=== PATIENT | male | born 1925 | race Caucasian/White ===

== ENCOUNTER 2016-04-06 15:29 | Inpatient (IN) | payer BC, OTHER ==
[~2016-04-06] VITALS: Ht 170.2 cm; Wt 88.9 kg
[~2016-04-06 15:29] MED LIST: ALBU1AER9 INH; BENZ100C84 PO; BROM0.07 OPR; DIPH-416 PO; INDO-22 PO; NRN600 PO; PRED1SUS3 OPR; PROP1TAB PO; PROP60TA19 PO
[2016-04-06] MEDS ORDERED: MYS50 PO (15:30)
[2016-04-06] MEDS ORDERED: LISI-461 PO (15:30)
[2016-04-06] MEDS ORDERED: HYDR12.56 PO (15:30)
[2016-04-06] MEDS ORDERED: ALL300 PO ×2 (15:30→18:04)
[2016-04-06] MEDS ORDERED: DILTIAZEM HCL 5 MG/ML 5 ML VIAL IV STA (16:05)
[2016-04-06] MEDS ORDERED: DILTIAZEM BOLUS / DRIP IV STA ×2 (16:05→18:17)
--- NOTE | 2016-04-06 16:10 | EMERGENCY ROOM VISIT NOTE ---
History Report prepared by Deidra: José Johnson Under the Supervision of: Dr. Francisco Ruiz M.D. First contact with patient: 15:45 Chief Complaint: CARDIAC ASSESSMENT Stated Complaint: IRREGULAR HEART RYTHEM - REFERRED BY Nursing Triage Summary: Pt reports sob that began yesterday, chest tightness, feeling tired. "I lost my balance on Fri night and fell into juniper bushes. I didn't go all the way to the ground." EKG done at [facility] shows a.fib RVR. Pt denies hx of a.fib. History of Present Illness The patient is an 89 year old male who presents to the Emergency Room with complaints of an acute irregular heart rhythm that was found at his PCP's office at [facility] earlier today. The patient had an EKG that showed atrial fibrillation with RVR at 108 beats per minute, no acute ischemic changes. He has never been diagnosed with a-fib before. The patient is not on any blood thinners. The patient notes that he started to experience shortness of breath and chest tightness yesterday. He has some abdominal pain today as well. The patient also notes that he had a fall three days ago where he fell into some bushes. The patient did not hit his head or lose consciousness. He attributes the fall to losing his balance on the edge of the walkway. Source of History: patient, transfer records (EKG [facility]) Onset: earlier today Position: other (heart) Quality: other (irregular rhythm) Timing: other (acute) Associated Symptoms: + SOB, + abdominal pain, + chest pain Review of Systems See HPI for pertinent positives & negatives. A total of 10 systems reviewed and were otherwise negative. Past Medical & Surgical Medical Problems: (1) CKD (chronic kidney disease), stage III (2) DM2 (diabetes mellitus, type 2) (3) HTN (hypertension) (4) SOB (shortness of breath) Surgical Problems: (1) H/O parotidectomy Family History Diabetes mellitus Hypertension Social History Smoking Status: Former Smoker Alcohol Use: none, other Marital Status: Housing Status: lives alone Occupation Status: retired Current/Historical Medications Scheduled Allopurinol (Allopurinol), 300 MG PO QAM Calcium Polycarbophil (Fibercon), 2 CAP PO BID Gabapentin (Gabapentin), 900 MG PO BID Hydrochlorothiazide (Hctz), 12.5 MG PO QAM Lisinopril (Lisinopril), 10 MG PO DAILY Primidone (Primidone), 2 TABS PO BID Propranolol (Inderal), 120 MG PO BID Scheduled PRN Lactulose (Chronulac), 15 ML PO BID PRN for Constipation Allergies Coded Allergies: Sertraline (Verified Adverse Reaction, Unknown, Dizziness., 11/19/15) Reported by PT. Physical Exam Vital Signs Date Time Temp Pulse Resp B/P Pulse Ox O2 Delivery O2 Flow Rate FiO2 04/06/16 17:40 93 27 132/68 96 04/06/16 17:28 128/48 04/06/16 17:13 140/63 04/06/16 17:10 85 20 122/60 93 04/06/16 17:05 80 22 94 04/06/16 17:03 129/69 04/06/16 17:00 84 23 93 04/06/16 16:58 144/62 04/06/16 16:55 78 21 94 04/06/16 16:53 137/63 04/06/16 16:50 79 20 95 04/06/16 16:48 128/62 04/06/16 16:45 81 21 87 04/06/16 16:43 140/66 04/06/16 16:40 85 23 93 04/06/16 16:36 83 24 113/60 93 Room Air 04/06/16 16:31 103 22 147/78 94 Room Air 04/06/16 16:06 96 Room Air 04/06/16 16:05 96 Room Air 04/06/16 16:04 109 04/06/16 15:36 37.3 109 18 166/74 96 Room Air Physical Exam GENERAL: Patient is a healthy-appearing well-nourished HEAD: Normocephalic atraumatic EYES: Ocular movements intact pupils equal and react to light OROPHARYNX mucous membranes are moist no exudates present no erythema or edema present NECK: Supple no nuchal rigidity CHEST: Good equal expansion LUNGS: Clear and equal to auscultation CARDIAC: Normal S1 and S2 ABDOMEN: Soft nontender no guarding BACK: No CVA tenderness EXTREMITIES: No pain upon palpation normal muscle strength in all groups no clubbing cyanosis or edema NEURO: Patient is following commands is answering questions appropriately. Alert and oriented x3 Cranial Nerves 2-12 grossly intact Medical Decision & Procedures ER Provider Diagnostic Interpretation: X-ray results as stated below per interpretation by me and the radiologist: CHEST ONE VIEW PORTABLE CLINICAL HISTORY: CHEST PAIN dyspnea COMPARISON STUDY: No previous studies for comparison. FINDINGS: Mild cardia megaly. Mild pulmonary vascular prominence. Diaphragms are smooth. No focal infiltrates. IMPRESSION: Mild cardia megaly. Pulmonary vascular congestion. Electronically signed by: Son Aguilar M.D. 04/06/2016 4:29 PM Dictated Date/Time: 04/06/2016 4:29 PM Laboratory Results 04/06/16 15:57 Red Blood Count 3.08, Mean Corpuscular Volume 101.0, Mean Corpuscular Hemoglobin 34.4, Mean Corpuscular Hemoglobin Concent 34.1, Mean Platelet Volume 10.7, Neutrophils (%) (Auto) 80.3, Lymphocytes (%) (Auto) 9.6, Monocytes (%) ( Auto) 8.9, Eosinophils (%) (Auto) 0.2, Basophils (%) (Auto) 0.3, Neutrophils # ( Auto) 7.38, Lymphocytes # (Auto) 0.88, Monocytes # (Auto) 0.82, Eosinophils # ( Auto) 0.02, Basophils # (Auto) 0.03 04/06/16 15:57 Test 04/06/16 15:57 White Blood Count 9.19 K/uL (4.8-10.8) Red Blood Count 3.08 M/uL (4.7-6.1) Hemoglobin 10.6 g/dL (14.0-18.0) Hematocrit 31.1 % (42-52) Mean Corpuscular Volume 101.0 fL (80-100) Mean Corpuscular Hemoglobin 34.4 pg (25-34) Mean Corpuscular Hemoglobin Concent 34.1 g/dl (32-36) Platelet Count 244 K/uL (130-400) Mean Platelet Volume 10.7 fL (7.4-10.4) Neutrophils (%) (Auto) 80.3 % Lymphocytes (%) (Auto) 9.6 % Monocytes (%) (Auto) 8.9 % Eosinophils (%) (Auto) 0.2 % Basophils (%) (Auto) 0.3 % Neutrophils # (Auto) 7.38 K/uL (1.4-6.5) Lymphocytes # (Auto) 0.88 K/uL (1.2-3.4) Monocytes # (Auto) 0.82 K/uL (0.11-0.59) Eosinophils # (Auto) 0.02 K/uL (0-0.5) Basophils # (Auto) 0.03 K/uL (0-0.2) RDW Standard Deviation 60.1 fL (36.4-46.3) RDW Coefficient of Variation 16.4 % (11.5-14.5) Immature Granulocyte % (Auto) 0.7 % Immature Granulocyte # (Auto) 0.06 K/uL (0.00-0.02) Prothrombin Time 11.5 SECONDS (9.0-12.0) Prothromb Time International Ratio 1.1 (0.9-1.1) Activated Partial Thromboplast Time 30.2 SECONDS (21.0-31.0) Partial Thromboplastin Ratio 1.2 Anion Gap 10.0 mmol/L (3-11) Est Creatinine Clear Calc Drug Dose 40.8 ml/min Estimated GFR () 56.5 Estimated GFR (Non- 48.7 BUN/Creatinine Ratio 20.4 (10-20) Calcium Level 8.8 mg/dl (8.5-10.1) Magnesium Level 1.9 mg/dl (1.8-2.4) Total Bilirubin 2.4 mg/dl (0.2-1) Direct Bilirubin 0.6 mg/dl (0-0.2) Aspartate Amino Transf (AST/SGOT) 14 U/L (15-37) Alanine Aminotransferase (ALT/SGPT) 22 U/L (12-78) Alkaline Phosphatase 82 U/L (45-117) Total Creatine Kinase 32 U/L (39-308) Creatine Kinase MB 0.6 ng/ml (0.5-3.6) Creatine Kinase MB Ratio 1.9 (0-3.0) Troponin I < 0.015 ng/ml (0-0.045) Total Protein 7.7 gm/dl (6.4-8.2) Albumin 3.8 gm/dl (3.4-5.0) Lipase 138 U/L (73-393) Thyroid Stimulating Hormone (TSH) 2.070 uIu/ml (0.300-4.500) Labs reviewed by ED physician. Medications Administered Medications (Trade) Dose Ordered Sig/Prema Route Start Time Stop Time Status Last Admin Dose Admin Diltiazem HCl 22 mg 22 mg NOW STAT IV 04/06/16 16:05 04/06/16 16:07 DC 04/06/16 16:30 22 MG Diltiazem HCl/ Dextrose (Cardizem Inj/D5 100ml) 125 ml @ 0 mls/hr Q0M PRN IV 04/06/16 16:15 05/06/16 16:14 04/06/16 16:35 5 MLS/HR ECG Indication: chest pain, SOB/dyspnea Rate (beats per minute): 112 Rhythm: atrial fibrillation (with RVR) Findings: no acute ischemic change, other (RVR) Change: no significant change Change: No significant change from EKG from PCP's office earlier today. ED Course 1600: Past medical records reviewed. The patient was evaluated in room C12a. A complete history and physical examination was performed. 1605: Cardizem 22 mg IV. 1615: Cardizem 125 mg / dextrose 125 ml @ 0 mls/hr protocol. 165: Spoke with Jory King PA-C [facility]. The patient will be evaluated. Medical Decision Differential diagnosis: Etiologies such as cardiac ischemia, aortic dissection, pulmonary embolism, pneumonia, pneumothorax, musculoskeletal, infections, pericarditis, myocarditis , esophageal rupture, gastrointestinal, as well as others were entertained. This is an 89-year-old male who presents emergency department complaining of A. fib with RVR. The patient experienced a fall at home on Wednesday and had been expressing shortness of breath throat weekend. He went to his primary care physician's office today who sent the patient into the emergency department for A. fib with RVR. He will the patient was started on Cardizem and started on a Cardizem drip. The patient's chest pain went away when his rate was controlled. I did discuss the case with the [facility] service who agreed to admit the patient. Patient family were in agreement with the treatment plan. Consults Time Called: 1649 Consulting Physician: Jory King PA-C, [facility]. Returned Call: [phone]: [facility] The patient will be evaluated. Impression Primary Impression: Atrial fibrillation with rapid ventricular response Scribe Attestation The scribe's documentation has been prepared under my direction and personally reviewed by me in its entirety. I confirm that the note above accurately reflects all work, treatment, procedures, and medical decision making performed by me. Departure Information Dispostion Being Evaluated By Hospitalist Referrals Collin Kuo M.D. (PCP) Patient Instructions My [facility]
[2016-04-06 16:12] LABS: BASO % 0.3 %; BASO ABS # 0.03 K/uL (0-0.2); COMPLETE YES; EOS % 0.2 %; HEMATOCRIT 31.1 % (42-52); IG% 0.7 %; LYMPH % 9.6 %; LYMPH ABS # 0.88 K/uL (1.2-3.4); MEAN CORPUSCULAR HEMOGLOBIN 34.4 pg (25-34); MEAN CORPUSCULAR HGB CONC 34.1 g/dl (32-36); MEAN PLATELET VOLUME 10.7 fL (7.4-10.4); MONO % 8.9 %; NEUT % 80.3 %; PLATELET COUNT 244 K/uL (130-400); RED BLOOD COUNT 3.08 M/uL (4.7-6.1); WHITE BLOOD COUNT 9.19 K/uL (4.8-10.8)
[2016-04-06 16:21] LABS: INR 1.1 (0.9-1.1); PARTIAL THROMBOPLASTIN RATIO 1.2; PROTHROMBIN TIME (PATIENT) 11.5 SECONDS (9.0-12.0)
[2016-04-06] MEDS ORDERED: VNTHFA/IN INH (16:26)
[2016-04-06] MEDS ORDERED: CALC625T PO (16:26)
--- NOTE | 2016-04-06 16:30 | DIAGNOSTIC IMAGING REPORT ---
CHEST ONE VIEW PORTABLE CLINICAL HISTORY: CHEST PAIN dyspnea COMPARISON STUDY: No previous studies for comparison. FINDINGS: Mild cardia megaly. Mild pulmonary vascular prominence. Diaphragms are smooth. No focal infiltrates. IMPRESSION: Mild cardia megaly. Pulmonary vascular congestion. Electronically signed by: Son Aguilar M.D. 04/06/2016 4:29 PM Dictated Date/Time: 04/06/2016 4:29 PM
[2016-04-06 16:35] LABS: BLOOD UREA NITROGEN 27 mg/dl (7-18); BUN/CREATININE RATIO 20.4 (10-20); CALCIUM 8.8 mg/dl (8.5-10.1); CARBON DIOXIDE 24 mmol/L (21-32); CHLORIDE 103 mmol/L (98-107); GLUCOSE 181 mg/dl (70-99); POTASSIUM 4.1 mmol/L (3.5-5.1); SODIUM 137 mmol/L (136-145)
[2016-04-06] MEDS: DILTIAZEM HCL INJ 125 MG in DEXTROSE 5% 100ML IV PRN (16:35)
[2016-04-06 16:50] LABS: ALKALINE PHOSPHATASE 82 U/L (45-117); ALT/SGPT 22 U/L (12-78); AST/SGOT 14 U/L (15-37); CKMB/CK RATIO 1.9 (0-3.0)
[2016-04-06] MEDS ORDERED: ACET-1256 PO (16:51)
[2016-04-06] MEDS ORDERED: ONDANSETRON INJ 2 MG/ML 2 ML VIAL IV PRN (17:45)
[2016-04-06] MEDS ORDERED: ACETAMINOPHEN 325 MG TAB PO PRN (17:45)
[2016-04-06] MEDS ORDERED: LACT10SO17 PO (18:04)
[2016-04-06] MEDS ORDERED: HEPARIN IV LOW DOSE NO BOLUS SCH (18:11)
[2016-04-06] MEDS ORDERED: LACTULOSE SYRUP 10 GM/15 ML BTL 473 ML PO PRN (18:15)
[2016-04-06] MEDS ORDERED: HEPARIN 25000 UNIT/500 ML D5W ONE (18:18)
[2016-04-06 18:55] LABS: MAGNESIUM 1.9 mg/dl (1.8-2.4); THYROID STIMULATING HORMONE 2.07 uIu/ml (0.300-4.500)
[2016-04-06 19:58] VITALS: BP 155/84; PULSE 69; TEMP 37; O2SAT 96; Ht 170.2 cm; Wt 88.9 kg
--- NOTE | 2016-04-06 20:48 | History and Physical ---
History & Physical Date & Time of Service: Apr 06, 2016 at 18:19 Chief Complaint: Irregular Heart Rythem - Referred By Dr Primary Care Physician: Collin Kuo M.D. History of Present Illness Source: patient, clinic records This is an 89 y/o male with PMH of DM type 2 diet controlled, HTN, CKD stage III , essential tremor, BPH, and other problems listed below who was sent to the ED from clinic with new onset atrial fibrillation with RVR. He was seen today in clinic by Belinda Carl PA-C and had EKG showing AF with RVR rate 108. Patient states he developed M[place]ILLA yesterday with bending down and picking up a bucket of water which he typically does without issues. In addition yesterday he started feeling tight in his chest in substernal area, non-radiating, rated 1-2/10, which was constant until arriving the ER and starting on Cardizem drip. He is now chest pain free. He notes tenderness of his abdomen around periumbilical area starting yesterday which is resolved. He also note associated fatigue. He is constipated for past few days and PO intake has been decreased. He notes " bad knees" so generally takes the stairs very slowly without SOB. He reports falling 3 days ago due to stepping off the edge of a sidewalk and falling into a [place]erguson. No significant injury- states R shoulder was sore but now resolved. He notes chronic calf pain in R side and L side starting 1 week ago. He notes chronic chronic nasal congestion/ phlegm in throat, but now worsening. He denies diaphoresis, dizziness, weakness, numbness, palpitations, SOB at rest, N/ V/D, urinary changes, edema. Pt reports possible GIB, unknown details, 3+ years ago. No recent abnormal bleeding. Pt denies history of TIA, CVA, CHF, arrhythmia, CAD. Past Medical/Surgical History Medical Problems: (1) BPH (benign prostatic hypertrophy) Status: Chronic (2) CKD (chronic kidney disease), stage III Status: Chronic (3) Diabetic neuropathy Status: Chronic (4) DM2 (diabetes mellitus, type 2) Status: Chronic (5) Essential tremor Status: Chronic (6) HTN (hypertension) Status: Chronic Surgical Problems: (1) H/O inguinal hernia repair Status: Chronic (2) H/O parotidectomy Status: Chronic Family History Diabetes mellitus Hypertension Social History Smoking Status: Former Smoker (quit 35 years ago prior 1 ppd) Alcohol Use: 4 oz of scotch per day Drug Use: none Marital Status: Housing status: lives with family (lives with his adult children. generally does ADL's independently. ambulates unassisted but states he struggles. ) Occupational Status: retired Immunizations History of Influenza Vaccine: Yes Influenza Vaccine Date: Jan 01, 2012 History of Tetanus Vaccine?: Yes Tetanus Immunization Date: Mar 02, 2006 History of Pneumococcal: Yes Pneumococcal Date: Mar 02, 2006 History of Hepatitis B Vaccine: No Multi-Drug Resistant Organisms History of MDRO: No Allergies Coded Allergies: Sertraline (Verified Adverse Reaction, Unknown, Dizziness., 11/19/15) Reported by PT. Home Medications Scheduled Allopurinol (Allopurinol), 300 MG PO QAM Calcium Polycarbophil (Fibercon), 2 CAP PO BID Gabapentin (Gabapentin), 900 MG PO BID Hydrochlorothiazide (Hctz), 12.5 MG PO QAM Lisinopril (Lisinopril), 10 MG PO DAILY Primidone (Primidone), 2 TABS PO BID Propranolol (Inderal), 120 MG PO BID Scheduled PRN Lactulose (Chronulac), 15 ML PO BID PRN for Constipation Review of Systems Ten point review of systems performed with pertinent positives and negatives noted in HPI. Physical Exam Vital Signs Date Time Temp Pulse Resp B/P Pulse Ox O2 Delivery O2 Flow Rate FiO2 04/06/16 18:11 88 18 151/65 96 Room Air 04/06/16 17:44 83 18 132/68 97 Room Air 04/06/16 17:05 80 22 94 04/06/16 17:03 129/69 04/06/16 17:00 84 23 93 04/06/16 16:58 144/62 04/06/16 16:55 78 21 94 04/06/16 16:53 137/63 04/06/16 16:50 79 20 95 04/06/16 16:48 128/62 04/06/16 16:45 81 21 87 04/06/16 16:43 140/66 04/06/16 16:40 85 23 93 04/06/16 16:36 83 24 113/60 93 Room Air 04/06/16 16:31 103 22 147/78 94 Room Air 04/06/16 16:06 96 Room Air 04/06/16 16:05 96 Room Air 04/06/16 16:04 109 04/06/16 15:36 37.3 109 18 166/74 96 Room Air General Appearance: WD/WN, no apparent distress, + pertinent finding (pleasant cooperative elderly male) Head: normocephalic, atraumatic Eyes: normal inspection, PERRL, EOMI ENT: pharynx normal, + pertinent finding (mildly hard of hearing) Neck: supple, no JVD, trachea midline Respiratory/Chest: lungs clear, normal breath sounds, no respiratory distress, no accessory muscle use Cardiovascular: no murmur, + irregularly irregular Abdomen/GI: normal bowel sounds, non tender, soft Extremities/Musculoskelatal: no calf tenderness, normal capillary refill, no pedal edema Neurologic/Psych: alert, normal mood/affect, oriented x 3, + pertinent finding (grossly nonfocal exam. + tremor bilateral arms) Skin: normal color, warm/dry Diagnostics Laboratory Results Results Past 24 Hours Test 04/06/16 15:57 Range/Units White Blood Count 9.19 4.8-10.8 K/uL Red Blood Count 3.08 4.7-6.1 M/uL Hemoglobin 10.6 14.0-18.0 g/dL Hematocrit 31.1 42-52 % Mean Corpuscular Volume 101.0 80-100 fL Mean Corpuscular Hemoglobin 34.4 25-34 pg Mean Corpuscular Hemoglobin Concent 34.1 32-36 g/dl Platelet Count 244 130-400 K/uL Mean Platelet Volume 10.7 7.4-10.4 fL Neutrophils (%) (Auto) 80.3 % Lymphocytes (%) (Auto) 9.6 % Monocytes (%) (Auto) 8.9 % Eosinophils (%) (Auto) 0.2 % Basophils (%) (Auto) 0.3 % Neutrophils # (Auto) 7.38 1.4-6.5 K/uL Lymphocytes # (Auto) 0.88 1.2-3.4 K/uL Monocytes # (Auto) 0.82 0.11-0.59 K/uL Eosinophils # (Auto) 0.02 0-0.5 K/uL Basophils # (Auto) 0.03 0-0.2 K/uL RDW Standard Deviation 60.1 36.4-46.3 fL RDW Coefficient of Variation 16.4 11.5-14.5 % Immature Granulocyte % (Auto) 0.7 % Immature Granulocyte # (Auto) 0.06 0.00-0.02 K/uL Prothrombin Time 11.5 9.0-12.0 SECONDS Prothromb Time International Ratio 1.1 0.9-1.1 Activated Partial Thromboplast Time 30.2 21.0-31.0 SECONDS Partial Thromboplastin Ratio 1.2 Sodium Level 137 136-145 mmol/L Potassium Level 4.1 3.5-5.1 mmol/L Chloride Level 103 98-107 mmol/L Carbon Dioxide Level 24 21-32 mmol/L Anion Gap 10.0 3-11 mmol/L Blood Urea Nitrogen 27 7-18 mg/dl Creatinine 1.30 0.60-1.40 mg/dl Est Creatinine Clear Calc Drug Dose 40.8 ml/min Estimated GFR () 56.5 Estimated GFR (Non- 48.7 BUN/Creatinine Ratio 20.4 10-20 Random Glucose 181 70-99 mg/dl Calcium Level 8.8 8.5-10.1 mg/dl Total Bilirubin 2.4 0.2-1 mg/dl Direct Bilirubin 0.6 0-0.2 mg/dl Aspartate Amino Transf (AST/SGOT) 14 15-37 U/L Alanine Aminotransferase (ALT/SGPT) 22 12-78 U/L Alkaline Phosphatase 82 45-117 U/L Total Creatine Kinase 32 39-308 U/L Creatine Kinase MB 0.6 0.5-3.6 ng/ml Creatine Kinase MB Ratio 1.9 0-3.0 Troponin I < 0.015 0-0.045 ng/ml Total Protein 7.7 6.4-8.2 gm/dl Albumin 3.8 3.4-5.0 gm/dl Lipase 138 73-393 U/L Diagnostic Radiology CHEST ONE VIEW PORTABLE CLINICAL HISTORY: CHEST PAIN dyspnea COMPARISON STUDY: No previous studies for comparison. FINDINGS: Mild cardia megaly. Mild pulmonary vascular prominence. Diaphragms are smooth. No focal infiltrates. IMPRESSION: Mild cardia megaly. Pulmonary vascular congestion. EKG Initial EKG in ER- atrial fibrillation with RVR rate 112, nonspecific ST depression in V3-V6 Repeat EKG in ER at 16:45- atrial fibrillation vs. flutter with rate 86, ST depressions in V3-V6 now resolved Impression Assessment and Plan NEW ONSET ATRIAL FIBRILLATION WITH RVR Rate initially 110s, now in 80s on Cardizem bolus/ drip; now in 80s CXR- mild cardiomegaly, mild pulmonary vascular congestion Electrolytes WNL; no evidence infection Check TSH, magnesium Continue Cardizem drip for rate control Also on propranolol for tremor CHADS2 score = 3 for HTN, age, DM Start IV heparin Defer to cardiology for PO anticoagulation Consult cardiology CHEST TIGHTNESS Resolved; possibly secondary to AF with RVR Initial troponin negative Check echo Trend serial cardiac enzymes HYPERTENSION BP is stable Continue HTCZ, lisinopril Also on propranolol for tremor DM TYPE 2 Diet controlled Monitor BSG AC HS Recheck A1c in am ESSENTIAL TREMOR Continue propranolol and primidone DIABETIC NEUROPATHY Continue gabapentin CHRONIC ANEMIA Hg is 10.6; baseline mostly 11's Question of remote hx of GIB- prior colonoscopy in 2006- ext hemorrhoids Denies recent bleeding Monitor DVT PROPHYLAXIS On IV heparin CODE STATUS DNR per my discussion with the patient DISPOSITION Follows with Dr. Kuo for primary care Lives at home with his adult children PT/ OT angela requested for ambulatory dysfunction Patient seen in collaboration with Dr. Boykin. Please see his addendum. VTE Prophylaxis VTE Risk Assessment Done? Y/N: Yes Risk Level: High
[2016-04-06] MEDS: CALCIUM POLYCARBOPHIL 1 TAB PO SCH (22:18)
[2016-04-06] MEDS: PROPRANOLOL HCL 80 MG TAB PO SCH (22:18)
[2016-04-06] MEDS: GABAPENTIN 300 MG CAP PO SCH (22:19)
[2016-04-06] MEDS: PRIMIDONE 50 MG TAB PO SCH (22:19)
[2016-04-06 22:58] VITALS: BP 92/61; PULSE 78; TEMP 37.3; O2SAT 95
[2016-04-07 01:31] LABS: PARTIAL THROMBOPLASTIN RATIO 1.4
[2016-04-07] MEDS: HEPARIN 25,000 UNIT/500ML D5W 500 ML IV PRN ×5 (01:43→22:03)
[2016-04-07] MEDS ORDERED: HEPARIN IV BOLUS 4,500 UNIT in SYRINGE 0 ML IV STA (01:46)
[2016-04-07 04:05] VITALS: BP 120/73; PULSE 75; TEMP 37.2; O2SAT 94
[2016-04-07 04:55] LABS: HEMATOCRIT 29.2 % (42-52); MEAN CELL VOLUME 102.5 fL (80-100); MEAN CORPUSCULAR HEMOGLOBIN 34.4 pg (25-34); MEAN CORPUSCULAR HGB CONC 33.6 g/dl (32-36); MEAN PLATELET VOLUME 10.7 fL (7.4-10.4); PLATELET COUNT 244 K/uL (130-400); RED BLOOD COUNT 2.85 M/uL (4.7-6.1)
[2016-04-07 05:11] LABS: BLOOD UREA NITROGEN 29 mg/dl (7-18); BUN/CREATININE RATIO 20.8 (10-20); CALCIUM 8.4 mg/dl (8.5-10.1); CARBON DIOXIDE 26 mmol/L (21-32); CHLORIDE 102 mmol/L (98-107); GLUCOSE 166 mg/dl (70-99); POTASSIUM 4.1 mmol/L (3.5-5.1); SODIUM 139 mmol/L (136-145)
[2016-04-07 05:16] LABS: CKMB/CK RATIO 1.7 (0-3.0)
[2016-04-07 06:41] LABS: ESTIMATED AVERAGE GLUCOSE 128 mg/dl; HA1C FLAG Normal (Normal)
[2016-04-07 07:42] VITALS: BP 104/56; PULSE 73; TEMP 36.7; O2SAT 96
[2016-04-07] MEDS: ALLOPURINOL 300 MG TAB PO SCH (07:44)
[2016-04-07] MEDS: GABAPENTIN 300 MG CAP PO SCH ×2 (07:45→19:45)
[2016-04-07] MEDS: PRIMIDONE 50 MG TAB PO SCH ×2 (07:45→19:46)
[2016-04-07] MEDS: PROPRANOLOL HCL 80 MG TAB PO SCH (07:46)
[2016-04-07] MEDS: CALCIUM POLYCARBOPHIL 1 TAB PO SCH ×2 (07:47→19:46)
[2016-04-07 08:30] LABS: PARTIAL THROMBOPLASTIN RATIO 1.5
[2016-04-07] MEDS ORDERED: LISINOPRIL 10 MG TAB PO SCH (09:00)
[2016-04-07] MEDS ORDERED: HYDROCHLOROTHIAZIDE 25 MG TAB PO SCH (09:00)
[2016-04-07] MEDS ORDERED: HEPARIN IV BOLUS 3,000 UNIT in SYRINGE 0 ML IV ONE (09:15)
[2016-04-07] MEDS ORDERED: PERFLUTREN LIPID MICROSPHERE (DEFINITY) IV ONE (10:47)
--- NOTE | 2016-04-07 11:33 | Cardiology Consultation ---
Cardiology Consultation Date of Consultation: Apr 07, 2016 Requesting Physician: Christine/Ashutosh Attending Minister Helper: Brandt (Son Giles PA-C) History of Present Illness Mr. Oziel Zepeda is an 89 year old male who is being seen at the request of Ms. King/Dr. Boykin. Reason for consultation is atrial fibrillation with a rapid ventricular response. Mr. Zepeda was admitted through the [facility] ER after presenting to his PCP's office with new onset atrial fibrillation with a rapid ventricular response. He gives a history of a mechanical fall on , slipping on black ice on the front porch and landing on his right sided into the shrubbery. He notes some right sided discomfort as a result of the fall that he was able to work out by stretching. On Wednesday he developed what he describes as "a little trouble breathing, labored breath, felt terrible." He notes reduction in exercise tolerance, fatigue, chest tightness, and a decreased appetite. At the urging of his daughter who was present for my evaluation the patient presented to his PCP' s office where he was found to be in new onset atrial fibrillation with RVR. In the ER he was started on a Cardizem drip with improvement in his heart rate as well as symptoms. The patient denies prior cardiac history. No history of arrhythmia, CAD, heart murmur, TIA/CVA, rheumatic fever, or scarlet fever. He does have a history of iron deficiency anemia and possible GI bleeding and is known to drink alcohol daily. 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 Family History: Father at 92 with an NV. Mother at 71 following a CVA. Multiple family members with diabetes. Children with lymphoma. Social History: Reformed smoker, quit at the age of 60 after smoking ~1 ppd since the age of 18. Alcohol: 4 ounces of scotch per day. No illegal drug use. 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 No chills. HEENT: Chronic phlegm in the throat. Dentures. [place]. No headache. No head trauma. Cardiovascular: See above. Pulmonary: See above. Gastrointestinal: See above. Constipation. Skin: No rash Musculoskeletal: Bilateral knee pain. Neurologic: Tremor. No history of TIA, CVA, or seizure. (Son Giles PA-C) Allergies Coded Allergies: Sertraline (Verified Adverse Reaction, Unknown, Dizziness., 11/19/15) Reported by PT. Medications Reported Home Medications Medications Dose Route/Sig Max Daily Dose Days Date Category Chronulac (Lactulose) 10 Gm/15 Ml Syrp 15 Ml PO BID PRN 04/06/16 Reported Fibercon (Calcium Polycarbophil) 625 Mg Tab 2 Cap PO BID 04/06/16 Reported Gabapentin 600 Mg Tab 900 Mg PO BID 10/02/15 Reported Inderal (Propranolol HCl) 60 Mg Tab 120 Mg PO BID 10/02/15 Reported Lisinopril 10 Mg Tab 10 Mg PO DAILY 10/14/13 Reported Primidone 50 Mg Tab 2 Tabs PO BID 10/14/13 Reported Allopurinol 300 Mg Tab 300 Mg PO QAM 10/14/13 Reported Hctz (Hydrochlorothiazide) 12.5 Mg Cap 12.5 Mg PO QAM 10/14/13 Reported (Son Giles PA-C) Physical Exam Vital Signs (Last 8hrs): Last 8 Hrs Date Time Temp Pulse Resp B/P Pulse Ox O2 Delivery O2 Flow Rate FiO2 04/07/16 08:00 Room Air 04/07/16 07:42 36.7 73 18 104/56 96 04/07/16 04:30 Room Air 04/07/16 04:05 37.2 75 18 120/73 94 Room Air General Appearance: Alert and Oriented x3. NAD. Head: Normocephalic Atraumatic. Eyes: PER, EOMI, conjunctiva and sclera icterus. Neck: Supple. No carotid bruits appreciated. No JVD. No HJD. Respiratory: Diminished but clear. No w/r/r. Cardiovascular: Irregularly irregular in the 60's. Distant heart sounds. I could not appreciate a murmur. Abdomen: Obese. Normal bowel sounds. No bruits. Soft. Nontender. Extremities: No edema. No clubbing. No cyanosis. distal pulses 1/4 bilaterally. Neuro: No focal deficits. Psychiatric: Normal affect. (Son Giles PA-C) Data Last 24 Hours Test 04/06/16 15:57 04/06/16 20:05 04/06/16 22:17 04/07/16 01:02 White Blood Count 9.19 K/uL Red Blood Count 3.08 M/uL Hemoglobin 10.6 g/dL Hematocrit 31.1 % Mean Corpuscular Volume 101.0 fL Mean Corpuscular Hemoglobin 34.4 pg Mean Corpuscular Hemoglobin Concent 34.1 g/dl Platelet Count 244 K/uL Mean Platelet Volume 10.7 fL Neutrophils (%) (Auto) 80.3 % Lymphocytes (%) (Auto) 9.6 % Monocytes (%) (Auto) 8.9 % Eosinophils (%) (Auto) 0.2 % Basophils (%) (Auto) 0.3 % Neutrophils # (Auto) 7.38 K/uL Lymphocytes # (Auto) 0.88 K/uL Monocytes # (Auto) 0.82 K/uL Eosinophils # (Auto) 0.02 K/uL Basophils # (Auto) 0.03 K/uL RDW Standard Deviation 60.1 fL RDW Coefficient of Variation 16.4 % Immature Granulocyte % (Auto) 0.7 % Immature Granulocyte # (Auto) 0.06 K/uL Prothrombin Time 11.5 SECONDS Prothromb Time International Ratio 1.1 Activated Partial Thromboplast Time 30.2 SECONDS 36.6 SECONDS Partial Thromboplastin Ratio 1.2 1.4 Sodium Level 137 mmol/L Potassium Level 4.1 mmol/L Chloride Level 103 mmol/L Carbon Dioxide Level 24 mmol/L Anion Gap 10.0 mmol/L Blood Urea Nitrogen 27 mg/dl Creatinine 1.30 mg/dl Est Creatinine Clear Calc Drug Dose 40.8 ml/min Estimated GFR () 56.5 Estimated GFR (Non- 48.7 BUN/Creatinine Ratio 20.4 Random Glucose 181 mg/dl Calcium Level 8.8 mg/dl Magnesium Level 1.9 mg/dl Total Bilirubin 2.4 mg/dl Direct Bilirubin 0.6 mg/dl Aspartate Amino Transf (AST/SGOT) 14 U/L Alanine Aminotransferase (ALT/SGPT) 22 U/L Alkaline Phosphatase 82 U/L Total Creatine Kinase 32 U/L 37 U/L Creatine Kinase MB 0.6 ng/ml < 0.5 ng/ml Creatine Kinase MB Ratio 1.9 Troponin I < 0.015 ng/ml < 0.015 ng/ml Total Protein 7.7 gm/dl Albumin 3.8 gm/dl Lipase 138 U/L Thyroid Stimulating Hormone (TSH) 2.070 uIu/ml Bedside Glucose 166 mg/dl Test 04/07/16 04:43 04/07/16 08:15 White Blood Count 9.30 K/uL Red Blood Count 2.85 M/uL Hemoglobin 9.8 g/dL Hematocrit 29.2 % Mean Corpuscular Volume 102.5 fL Mean Corpuscular Hemoglobin 34.4 pg Mean Corpuscular Hemoglobin Concent 33.6 g/dl RDW Standard Deviation 62.4 fL RDW Coefficient of Variation 16.6 % Platelet Count 244 K/uL Mean Platelet Volume 10.7 fL Sodium Level 139 mmol/L Potassium Level 4.1 mmol/L Chloride Level 102 mmol/L Carbon Dioxide Level 26 mmol/L Anion Gap 11.0 mmol/L Blood Urea Nitrogen 29 mg/dl Creatinine 1.40 mg/dl Est Creatinine Clear Calc Drug Dose 38.4 ml/min Estimated GFR () 51.6 Estimated GFR (Non- 44.5 BUN/Creatinine Ratio 20.8 Random Glucose 166 mg/dl Estimated Average Glucose 128 mg/dl Hemoglobin A1c 6.1 % Calcium Level 8.4 mg/dl Magnesium Level 2.0 mg/dl Total Creatine Kinase 35 U/L Creatine Kinase MB 0.6 ng/ml Creatine Kinase MB Ratio 1.7 Troponin I < 0.015 ng/ml Activated Partial Thromboplast Time 39.0 SECONDS Partial Thromboplastin Ratio 1.5 [id number]-2016 15:34:57. Poor data quality, interpretation may be adversely affected. Atrial fibrillation with rapid ventricular response. ST & T wave abnormality, consider lateral ischemia. When compared with ECG of 27-SEP-2015 03 :02, significant changes have occurred. Confirmed by AUTUMN TAM ([id number]) on 04/07 10:12:07 AM [id number]-APR-2016 16:45:23. Atrial fibrillation. Nonspecific T wave abnormality. When compared with ECG of 06-APR-2016 15:34, no significant change. Confirmed by AUTUMN TAM ([id number]) on 04/07/2016 10:18:59 AM Telemetry: Atrial fibrillation initially with a rapid ventricular response and now with a controlled ventricular response. Rates ranging from the upper 40's to ~150 bpm. TTE: Pending. Admission CXR Impression: Mild cardia megaly. Pulmonary vascular congestion. As per Dr. Lauren M.D. (Son Giles PA-C) Assessment & Plan New onset atrial fibrillation with a rapid ventricular response Duration unknown, seemingly greater than 48 hours. CHADS2 Score 3/6 (HTN, age, DM) Recent mechanical fall, daily alcohol use, chronic anemia with ~1 g drop in Hgb with heparin, age. Await resting echocardiogram interpretation. Rate control with beta-angelina therapy. Wean off Cardizem drip if/when able. Risks of anticoagulation appear to be greater than benefit. (Son Giles PA-C) Cardiology attending: Pt seen and examined, agree with findings and assessment as per Son Olmedo. Pathophysiology and treatment options for afib explained. Given daily alcohol use along with history of falls, do not believe would be a anticoagulation candidate. Will follow rate control strategy at this point. Can change in the future. Cont to monitor on tele for now. (Ervin Carlton D.O.)
--- NOTE | 2016-04-07 11:51 | ECHOCARDIOGRAM REPORT ---
*NOTICE TO RECEIVING CONSTITUTION PARTY AGENCY This information is strictly Confidential and protected under [place] law. [place] law prohibits you from making any further disclosure of this information unless further disclosure is expressly permitted by the written consent of the person to whom it pertains or is authorized by law. A general authorization for the release of medical or other information is not sufficient for this purpose. Hospital accepts no responsibility if the information is made available to any other person, INCLUDING THE PATIENT. Interpretation Summary * Name: JONATHAN KELLOGG Study Date: 04/07/2016 10:35 AM BP: 104/56 mmHg * Patient Location: [facility] HR: 73 * : 1925 (M/d/yyyy) Gender: Male Height: 66 in * Age: 89 yrs Ethnicity: CA Weight: 193 lb * Ordering Physician: Miguelina King * Referring Physician: Belinda Carl PA-C * Performed By: Amanda Adams * * Reason For Study: A-FIB * BSA: 2.0 m2 * -- Conclusions -- * Normal LV chamber size with mild concentric LVH. * Normal LV systolic function, EF 60-65%. * No segmental left ventricular wall motion abnormalities are noted. * Mild tricuspid regurgitation. * Moderate left atrial enlargement. * Mild right atrial enlargment. Procedure Details * A complete two-dimensional transthoracic echocardiogram was performed (2D, M-mode, Doppler and color flow Doppler). * A contrast injection of Definity was performed to improve assessment of LV function. * Contrast was injected into an intravenous site in the left arm. * One vial of Definity ultrasound contrast was diluted in normal saline to a total volume of 10 ml. A total of '3' ml of solution was administered during imaging. * Lot # [id number] of Definity utilized for procedure. * Expiration date 03/18. * The attending nurse who injected the contrast agent was FRANCISCO PEACOCK RN. Left Ventricle * The left ventricle is normal in size. * There is mild concentric left ventricular hypertrophy. * Ejection Fraction = 60-65%. * Left ventricular systolic function is normal. * No segmental left ventricular wall motion abnormalities are noted. * The left ventricular wall motion is normal. Right Ventricle * The right ventricular cavity size is normal (basal dimension <4.2 cm in right ventricular apical 4-chamber view). * The right ventricular systolic function is normal as assessed by tricuspid annular plane systolic excursion (TAPSE) (normal >1.5 cm). Atria * The left atrium is moderately dilated. * The right atrium is mildly dilated. * No ASD detected; PFO is not assessed. Mitral Valve * The mitral valve is normal in structure and function. Tricuspid Valve * The tricuspid valve anatomy is normal. * There is no tricuspid stenosis. * There is mild tricuspid regurgitation. Aortic Valve * The aortic valve is not well visualized. * No hemodynamically significant valvular aortic stenosis. * There is no significant aortic regurgitation. Pulmonic Valve * The pulmonary valve is not well seen, but the Doppler examination is normal without significant regurgitation or stenosis. Great Vessels * The aortic root and proximal ascending aorta are normal sized. Pericardium/Pleural * There is no pericardial effusion. MMode 2D Measurements and Calculations IVSd 1.1 cm IVSs 1.9 cm LVIDd 4.2 cm LVIDs 2.9 cm LVPWd 0.92 cm LVPWs 1.8 cm IVS/LVPW 1.2 FS 32.9 % EDV(Teich) 80.8 ml ESV(Teich) 30.9 ml EF(Teich) 61.8 % EDV(cubed) 76.7 ml ESV(cubed) 23.2 ml EF(cubed) 69.8 % % IVS thick 73.3 % % LVPW thick 96.1 % LV mass(C)d 143.1 grams LV mass(C)dI 72.7 grams/m\S\2 LV mass(C)s 218.8 grams LV mass(C)sI 111.1 grams/m\S\2 SV(Teich) 49.9 ml SI(Teich) 25.3 ml/m\S\2 SV(cubed) 53.6 ml SI(cubed) 27.2 ml/m\S\2 ACS 1.4 cm LA dimension 4.8 cm asc Aorta Diam 3.3 cm LVOT diam 1.9 cm LVOT area 2.7 cm\S\2 LVAd ap4 30.8 cm\S\2 LVLd ap4 8.1 cm EDV(MOD-sp4) 97.3 ml EDV(sp4-el) 99.8 ml LVAs ap4 17.9 cm\S\2 LVLs ap4 7.2 cm ESV(MOD-sp4) 35.4 ml ESV(sp4-el) 37.7 ml EF(MOD-sp4) 63.7 % EF(sp4-el) 62.2 % LVAd ap2 25.6 cm\S\2 LVLd ap2 7.2 cm EDV(MOD-sp2) 72.3 ml EDV(sp2-el) 77.2 ml LVAs ap2 14.0 cm\S\2 LVLs ap2 6.1 cm ESV(MOD-sp2) 25.7 ml ESV(sp2-el) 27.1 ml EF(MOD-sp2) 64.5 % EF(sp2-el) 64.9 % LVLd %diff -11.86 % EDV(MOD-bp) 85.8 ml LVLs %diff -18.05 % ESV(MOD-bp) 32.1 ml EF(MOD-bp) 62.5 % SV(MOD-sp4) 61.9 ml SI(MOD-sp4) 31.5 ml/m\S\2 SV(MOD-sp2) 46.6 ml SI(MOD-sp2) 23.7 ml/m\S\2 SV(MOD-bp) 53.6 ml SI(MOD-bp) 27.2 ml/m\S\2 SV(sp4-el) 62.1 ml SI(sp4-el) 31.5 ml/m\S\2 SV(sp2-el) 50.1 ml SI(sp2-el) 25.4 ml/m\S\2 Doppler Measurements and Calculations MV E max konstantin 117.3 cm/sec MV A max konstantin 47.0 cm/sec MV E/A 2.5 MV V2 max 123.6 cm/sec MV max PG 6.1 mmHg MV V2 mean 46.3 cm/sec MV mean PG 1.3 mmHg MV V2 VTI 26.8 cm MVA(VTI) 1.6 cm\S\2 MV dec time 0.19 sec Ao V2 max 120.0 cm/sec Ao max PG 5.8 mmHg Ao max PG (full) 2.8 mmHg SOTERO(V,A) 1.9 cm\S\2 SOTERO(V,D) 1.9 cm\S\2 LV V1 max PG 3.0 mmHg LV V1 mean PG 1.6 mmHg LV V1 max 85.9 cm/sec LV V1 mean 59.0 cm/sec LV V1 VTI 15.8 cm MR max konstantin 431.9 cm/sec MR max PG 74.6 mmHg SV(LVOT) 42.6 ml SI(LVOT) 21.6 ml/m\S\2 PA V2 max 67.7 cm/sec PA max PG 1.8 mmHg PI end-d konstantin 101.8 cm/sec TR max konstantin 274.0 cm/sec
[2016-04-07 11:55] VITALS: BP 90/57; PULSE 66; TEMP 37; O2SAT 95
[2016-04-07] MEDS: DILTIAZEM HCL INJ 125 MG in DEXTROSE 5% 100ML IV PRN (12:33)
[2016-04-07 14:22] LABS: TOTAL IRON BINDING CAPACITY 278 mcg/dl (250-450)
[2016-04-07 15:02] LABS: PARTIAL THROMBOPLASTIN RATIO 1.5
[2016-04-07 15:42] VITALS: BP 90/51; PULSE 94; TEMP 36.8; O2SAT 95
[2016-04-07] MEDS ORDERED: HEPARIN IV BOLUS 4,500 UNIT in SYRINGE 0 ML IV ONE (16:00)
[2016-04-07 16:30] LABS: HEMATOCRIT 27.4 % (42-52)
--- NOTE | 2016-04-07 19:23 | Progress Note ---
Internal Med Progress Note Date of Service: Apr 07, 2016. Provider Documentation: SUBJECTIVE: Patient is feeling much better today. No palpitations, Chest Pain/pressure or SOB. His HR is in 70's and is in NSR. OBJECTIVE: Vital Signs-as noted below Examination: General Appearance: WD/WN, no apparent distress, pleasant cooperative elderly male Head: normocephalic, atraumatic Eyes: normal inspection, PERRL, EOMI ENT: pharynx normal, mildly hard of hearing Neck: supple, no JVD, trachea midline Respiratory/Chest: lungs clear, normal breath sounds, no respiratory distress, no accessory muscle use Cardiovascular: no murmur, + irregularly irregular Abdomen/GI: normal bowel sounds, non tender, soft Extremities/Musculoskeletal: no calf tenderness, normal capillary refill, no pedal edema Neurologic/Psych: alert, normal mood/affect, oriented x 3, grossly nonfocal exam. + tremor bilateral arms Skin: normal color, warm/dry Lab data as noted below. ASSESSMENT & PLAN: New Onset Atrial Fibrillation With RVR: Rate initially 110s, now in 80s on Cardizem bolus/ drip; now in 80s. Clinically stable. CXR- mild cardiomegaly, mild pulmonary vascular congestion.Electrolytes WNL; no evidence infection -TSH is normal -Continue Cardizem drip for rate control and dose is being decreased gradually -Also on propranolol for tremor but was not taking it regularly -CHADS2 score = 3 for HTN, age, DM -Continue IV heparin. Not a good candidate for long-term oral anti- coagulation -Noted cardiology consult. Thanks for input. Chest Pain: Resolved now. Possibly secondary to AF with RVR -Serial troponin negative -Check echo Hypertension: BP is stable -Continue HTCZ, lisinopril -Also on propranolol for tremor which has been chnaged to Toprol XL 50 mg BID. Diabetes Type II: We ll controlled with diet. HbA1c is 6.1. 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 -Continue gabapentin Chronic Anemia: Hg is 10.6; baseline mostly 11's -Question of remote hx of GIB- prior colonoscopy in 2006- ext hemorrhoids DVT Prophylaxis: IV heparin Code Status: DNR per discussion upon admission Disposition: Follows with Dr. Kuo for primary care Lives at home with his adult children PT/ OT evals requested for ambulatory dysfunction Vital Signs: Date Time Temp Pulse Resp B/P Pulse Ox O2 Delivery O2 Flow Rate FiO2 04/08/16 16:00 Room Air 04/08/16 15:50 36.5 70 18 118/72 96 Room Air 04/08/16 14:14 130/71 119/71 04/08/16 12:00 36.4 74 16 91/44 95 Room Air 04/08/16 12:00 Room Air 04/08/16 08:00 36.5 60 16 87/45 94 Room Air 04/08/16 08:00 Room Air 04/08/16 04:00 Room Air 04/08/16 03:55 36.6 60 19 85/52 94 Room Air 04/08/16 00:00 Room Air 04/07/16 23:52 36.7 66 20 93/53 92 Room Air 04/07/16 20:00 Room Air 04/07/16 19:44 37.0 63 19 92/50 94 Room Air Lab Results: Results Past 24 Hours Test 04/07/16 20:37 04/07/16 21:02 04/08/16 04:15 04/08/16 07:12 Range/Units Bedside Glucose 143 139 70-99 mg/dl Activated Partial Thromboplast Time 45.8 48.4 21.0-31.0 SECONDS Partial Thromboplastin Ratio 1.8 1.8 White Blood Count 8.15 4.8-10.8 K/uL Red Blood Count 2.63 4.7-6.1 M/uL Hemoglobin 9.0 14.0-18.0 g/dL Hematocrit 26.6 42-52 % Mean Corpuscular Volume 101.1 80-100 fL Mean Corpuscular Hemoglobin 34.2 25-34 pg Mean Corpuscular Hemoglobin Concent 33.8 32-36 g/dl RDW Standard Deviation 62.8 36.4-46.3 fL RDW Coefficient of Variation 17.0 11.5-14.5 % Platelet Count 234 130-400 K/uL Mean Platelet Volume 11.3 7.4-10.4 fL Sodium Level 135 136-145 mmol/L Potassium Level 3.6 3.5-5.1 mmol/L Chloride Level 97 98-107 mmol/L Carbon Dioxide Level 26 21-32 mmol/L Anion Gap 12.0 3-11 mmol/L Blood Urea Nitrogen 49 7-18 mg/dl Creatinine 2.60 0.60-1.40 mg/dl Est Creatinine Clear Calc Drug Dose 20.9 ml/min Estimated GFR () 24.4 Estimated GFR (Non- 21.1 BUN/Creatinine Ratio 18.9 10-20 Random Glucose 114 70-99 mg/dl Calcium Level 8.4 8.5-10.1 mg/dl Magnesium Level 2.1 1.8-2.4 mg/dl Test 04/08/16 08:21 04/08/16 11:11 04/08/16 16:13 Range/Units Bedside Glucose 158 157 70-99 mg/dl
[2016-04-07] MEDS ORDERED: NURSING VERBAL MED ORDER ONE (19:30)
[2016-04-07 19:44] VITALS: BP 92/50; PULSE 63; TEMP 37; O2SAT 94
[2016-04-07] MEDS: METOPROLOL SUCC 50MG EXT REL TAB PO SCH (19:45)
[2016-04-07] MEDS ORDERED: CYANOCOBALAMIN 1000 MCG/ML VIAL IM ONE (20:00)
[2016-04-07 21:33] LABS: PARTIAL THROMBOPLASTIN RATIO 1.8
[2016-04-07] MEDS ORDERED: HEPARIN IV BOLUS 3,000 UNIT in SYRINGE 0 ML IV STA (21:54)
[2016-04-07 23:52] VITALS: BP 93/53; PULSE 66; TEMP 36.7; O2SAT 92
[2016-04-08] VITALS (7 sets, daily range): BP systolic 85–130; BP diastolic 44–72; PULSE 60–76; TEMP 36.4–36.8; O2SAT 93–96
[2016-04-08 05:16] LABS: BUN/CREATININE RATIO 18.9 (10-20); CALCIUM 8.4 mg/dl (8.5-10.1); CREATININE 2.6 mg/dl (0.60-1.40); MAGNESIUM 2.1 mg/dl (1.8-2.4); POTASSIUM 3.6 mmol/L (3.5-5.1)
[2016-04-08 05:22] LABS: PARTIAL THROMBOPLASTIN RATIO 1.8
[2016-04-08] MEDS: PRIMIDONE 50 MG TAB PO SCH ×2 (08:32→19:29)
[2016-04-08] MEDS: CALCIUM POLYCARBOPHIL 1 TAB PO SCH ×2 (08:33→19:30)
[2016-04-08] MEDS: ALLOPURINOL 300 MG TAB PO SCH (08:33)
[2016-04-08] MEDS: GABAPENTIN 300 MG CAP PO SCH ×2 (08:33→19:30)
[2016-04-08] MEDS: METOPROLOL SUCC 50MG EXT REL TAB PO SCH ×2 (08:46→19:30)
[2016-04-08 08:59] LABS: HEMATOCRIT 26.6 % (42-52); MEAN CELL VOLUME 101.1 fL (80-100); MEAN CORPUSCULAR HEMOGLOBIN 34.2 pg (25-34); MEAN PLATELET VOLUME 11.3 fL (7.4-10.4); PLATELET COUNT 234 K/uL (130-400); RED BLOOD COUNT 2.63 M/uL (4.7-6.1); WHITE BLOOD COUNT 8.15 K/uL (4.8-10.8)
[2016-04-08 09:00] LABS: MEAN CORPUSCULAR HGB CONC 33.8 g/dl (32-36)
--- NOTE | 2016-04-08 10:19 | Cardiology Follow-Up ---
Subjective General Date of Service: Apr 08, 2016. Chief Complaint: Shortness of breath Pt evaluation today including: conversation w/ patient, physical exam, chart review, lab review, review of studies, review of inpatient medication list History of Present Illness Patient seen and examined. Feeling better. Dyspnea back to baseline. No chest pain. No palpitations. Telemetry: Atrial fibrillation 60-80 bpm currently. Slow ventricular response observed overnight (down to 45 bpm). No significant pauses. April 07, 2016 TTE Interpretation Summary ([facility], Dr. Ervin Carlton): Normal LV chamber size with mild concentric LVH. Normal LV systolic function, EF 60-65%. No segmental left ventricular wall motion abnormalities are noted. Mild tricuspid regurgitation. Moderate left atrial enlargement. Mild right atrial enlargement. Allergies Coded Allergies: Sertraline (Verified Adverse Reaction, Unknown, Dizziness., 11/19/15) Reported by PT. Social History Smoking Status: Former Smoker (quit 35 years ago prior 1 ppd) Hx Tobacco Use In Past Year?: No (QUIT 35 YEARS AGO) Hx Alcohol Use - Type And Amou: Yes (2 drinks scotch/day) Hx Substance Use - Type And Am: No Problem List Medical Problems: (1) Alcohol intoxication Status: Acute (2) Atrial fibrillation with rapid ventricular response Status: Acute (3) Bronchitis Status: Acute (4) Cellulitis Status: Acute (5) Chest pain Status: Acute (6) Open nasal fracture Status: Acute Physical Exam Vital Signs Last Vital Signs Documentation Date Time Temp Pulse Resp B/P Pulse Ox O2 Delivery O2 Flow Rate FiO2 04/08/16 08:00 36.5 60 16 87/45 94 Room Air Physical Exam Constitutional: Level of Distress: NAD Psychiatric: Mental Status: active & alert Orientation: to time, to place, to person Memory: recent memory normal, remote memory normal Head: normocephalic, atraumatic Eyes: Pupils: PERRLA Neck: pertinent finding (Normal JVP) Lungs: Respiratory effort: no dyspnea Auscultation: no wheezing, no rales/crackles, no rhonchi, deminished air movement, decreased breath sounds Cardiovascular: Heart Auscultation: no rubs, II/ JAMA, irregular rate rhythm Abdomen: Bowel Sounds: normal Inspection & Palpation: soft, non-distended, no masses Extremities: no cyanosis, no edema, no clubbing Neurologic: Cranial Nerves: grossly intact Assessment and Plan Assessment and Plan New onset atrial fibrillation with a rapid ventricular response Duration unknown, seemingly greater than 48 hours. Rates controlled with Toprol XL CHADS2 Score 3/6 (HTN, age, DM). Recent mechanical fall, daily alcohol use, chronic anemia, drop in Hgb with heparin, and age - risks appear to be greater than the benefit. Hypotension Off Diltiazem Hold Lisinopril Hold HCTZ Acute kidney injury Suspect secondary to hypotension, bradycardia See above. Reassess labs in AM Cardiology attending: Pt seen and examined, agree with findings and assessment as per Son Olmedo. Discussed pathophysiology and treatment options with patient at length. He agrees that he would not be an anticoagulation candidate. Will stop heparin now. Cont toprol. Laboratory Results Last 24 Hours Test 04/07/16 11:31 04/07/16 11:36 04/07/16 13:00 04/07/16 14:30 Bedside Glucose 160 mg/dl Transferrin % Saturation % 12 % Iron Level 34 mcg/dl Total Iron Binding Capacity 278 mcg/dl Transferrin 210 mg/dl Vitamin B12 Level 289 pg/mL Folate 9.53 ng/mL Activated Partial Thromboplast Time 38.4 SECONDS Partial Thromboplastin Ratio 1.5 Test 04/07/16 16:20 04/07/16 16:21 04/07/16 21:02 04/08/16 04:15 Hemoglobin 9.3 g/dL 9.0 g/dL Hematocrit 27.4 % 26.6 % Bedside Glucose 163 mg/dl Activated Partial Thromboplast Time 45.8 SECONDS 48.4 SECONDS Partial Thromboplastin Ratio 1.8 1.8 White Blood Count 8.15 K/uL Red Blood Count 2.63 M/uL Mean Corpuscular Volume 101.1 fL Mean Corpuscular Hemoglobin 34.2 pg Mean Corpuscular Hemoglobin Concent 33.8 g/dl RDW Standard Deviation 62.8 fL RDW Coefficient of Variation 17.0 % Platelet Count 234 K/uL Mean Platelet Volume 11.3 fL Sodium Level 135 mmol/L Potassium Level 3.6 mmol/L Chloride Level 97 mmol/L Carbon Dioxide Level 26 mmol/L Anion Gap 12.0 mmol/L Blood Urea Nitrogen 49 mg/dl Creatinine 2.60 mg/dl Est Creatinine Clear Calc Drug Dose 20.9 ml/min Estimated GFR () 24.4 Estimated GFR (Non- 21.1 BUN/Creatinine Ratio 18.9 Random Glucose 114 mg/dl Calcium Level 8.4 mg/dl Magnesium Level 2.1 mg/dl Test 04/08/16 07:12 04/08/16 08:21 Bedside Glucose 139 mg/dl
[2016-04-08] MEDS ORDERED: FERROUS FUMARATE CONTR REL CAP 65 MG CAPCR PO SCH (11:00)
--- NOTE | 2016-04-08 11:03 | Clinical Documentation Query ---
Dr. [facility] : CLINICAL DOCUMENTATION QUERY Patient is an 89 year old male admitted with new onset atrial fibrillation with RVR. Admission BUN and creatinine were 27 mg/dl and 1.30 mg/dl, consistent with provided documentation of CKD stage 3. Repeat values this a.m. (04/08/16) were 49 mg/dl and 2.60 mg/dl. In your clinical opinion is this patient being managed for: ( X ) Acute kidney failure. See my note ( ) Other explanation of clinical findings (Please Explain) ( ) Unable to determine (Please Define) ( ) Need to Discuss ( ) Not Agree The medical record reflects the following clinical findings, treatment, and risk factors. Clinical Indicators: As above Treatment: Risk Factors: Age, medications, atrial fibrillation, relative hypotension, Please clarify and document your clinical opinion in the progress notes and discharge summary. Terms such as "probable", "suspected", "likely", "questionable", "possible", or "still to be ruled out" are acceptable. IF IN AGREEMENT, YOU MUST DOCUMENT ABOVE DIAGNOSTIC STATEMENT IN DAILY PROGRESS NOTES AND DISCHARGE SUMMARY. This document is not part of the patient's record. Thank You, Shant Henriquez, RN [phone]
[2016-04-08] MEDS: HEPARIN 25,000 UNIT/500ML D5W 500 ML IV PRN (14:32)
[2016-04-08] MEDS ORDERED: SODIUM CHLORIDE 0.9% 500ML 500 ML IV SCH (16:45)
[2016-04-08] MEDS ORDERED: IRON SUCROSE INJ 100 MG in SODIUM CHLORIDE 0.9% 100ML 100 ML IV SCH (17:00)
--- NOTE | 2016-04-08 18:11 | Progress Note ---
Internal Med Progress Note Date of Service: Apr 08, 2016. Provider Documentation: SUBJECTIVE: Patient is feeling much better today. No palpitations, Chest Pain/pressure or SOB.Feels stronger. His HR is in 70's and is in NSR. OBJECTIVE: Vital Signs-as noted below Examination: General Appearance: WD/WN, no apparent distress, pleasant cooperative elderly male Head: normocephalic, atraumatic Eyes: normal inspection, PERRL, EOMI ENT: pharynx normal, mildly hard of hearing Neck: supple, no JVD, trachea midline Respiratory/Chest: lungs clear, normal breath sounds, no respiratory distress, no accessory muscle use Cardiovascular: no murmur, + irregularly irregular Abdomen/GI: normal bowel sounds, non tender, soft Extremities/Musculoskeletal: no calf tenderness, normal capillary refill, no pedal edema Neurologic/Psych: alert, normal mood/affect, oriented x 3, grossly nonfocal exam. + tremor bilateral arms Skin: normal color, warm/dry Lab data as noted below. ASSESSMENT & PLAN: New Onset Atrial Fibrillation With RVR: Rate initially 110s, now in 80s on Cardizem bolus/ drip; now in 80s. Clinically stable. CXR- mild cardiomegaly, mild pulmonary vascular congestion.Electrolytes WNL; no evidence infection -TSH is normal -Off Cardizem drip. -Also on propranolol for tremor but was not taking it regularly. Has been discontinued. -CHADS2 score = 3 for HTN, age, DM -Continue IV heparin. 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 Thanks for input. Chest Pain: Resolved now. Possibly secondary to AF with RVR -Serial troponin negative -Check echo Acute Kidney Injury: Likely due to hypotension and possible volume depletion. -Started gentle hydration -Monitor GFR -Avoid any Nephrotoxin Hypertension: BP has been running low. -Continue HTCZ, lisinopril -Also on propranolol for tremor which has been changed to Toprol XL 50 mg BID. Diabetes Type II: We ll controlled with diet. HbA1c is 6.1. 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 -Continue gabapentin Chronic Anemia: Hg is 9.0; baseline mostly 11's -Question of remote hx of GIB- prior colonoscopy in 2006- ext hemorrhoids -Low Iron level so am giving Venofer DVT Prophylaxis: IV heparin Code Status: DNR per discussion upon admission Disposition: Follows with Dr. Kuo for primary care.Discharge planning Lives at home with his adult children PT/ OT evals requested for ambulatory dysfunction Vital Signs: Date Time Temp Pulse Resp B/P Pulse Ox O2 Delivery O2 Flow Rate FiO2 04/08/16 16:00 Room Air 04/08/16 15:50 36.5 70 18 118/72 96 Room Air 04/08/16 14:14 130/71 119/71 04/08/16 12:00 36.4 74 16 91/44 95 Room Air 04/08/16 12:00 Room Air 04/08/16 08:00 36.5 60 16 87/45 94 Room Air 04/08/16 08:00 Room Air 04/08/16 04:00 Room Air 04/08/16 03:55 36.6 60 19 85/52 94 Room Air 04/08/16 00:00 Room Air 04/07/16 23:52 36.7 66 20 93/53 92 Room Air 04/07/16 20:00 Room Air 04/07/16 19:44 37.0 63 19 92/50 94 Room Air Lab Results: Results Past 24 Hours Test 04/07/16 20:37 04/07/16 21:02 04/08/16 04:15 04/08/16 07:12 Range/Units Bedside Glucose 143 139 70-99 mg/dl Activated Partial Thromboplast Time 45.8 48.4 21.0-31.0 SECONDS Partial Thromboplastin Ratio 1.8 1.8 White Blood Count 8.15 4.8-10.8 K/uL Red Blood Count 2.63 4.7-6.1 M/uL Hemoglobin 9.0 14.0-18.0 g/dL Hematocrit 26.6 42-52 % Mean Corpuscular Volume 101.1 80-100 fL Mean Corpuscular Hemoglobin 34.2 25-34 pg Mean Corpuscular Hemoglobin Concent 33.8 32-36 g/dl RDW Standard Deviation 62.8 36.4-46.3 fL RDW Coefficient of Variation 17.0 11.5-14.5 % Platelet Count 234 130-400 K/uL Mean Platelet Volume 11.3 7.4-10.4 fL Sodium Level 135 136-145 mmol/L Potassium Level 3.6 3.5-5.1 mmol/L Chloride Level 97 98-107 mmol/L Carbon Dioxide Level 26 21-32 mmol/L Anion Gap 12.0 3-11 mmol/L Blood Urea Nitrogen 49 7-18 mg/dl Creatinine 2.60 0.60-1.40 mg/dl Est Creatinine Clear Calc Drug Dose 20.9 ml/min Estimated GFR () 24.4 Estimated GFR (Non- 21.1 BUN/Creatinine Ratio 18.9 10-20 Random Glucose 114 70-99 mg/dl Calcium Level 8.4 8.5-10.1 mg/dl Magnesium Level 2.1 1.8-2.4 mg/dl Test 04/08/16 08:21 04/08/16 11:11 04/08/16 16:13 Range/Units Bedside Glucose 158 157 70-99 mg/dl
[2016-04-09 04:20] VITALS: BP 96/59; PULSE 64; TEMP 36.4; O2SAT 94
[2016-04-09 06:21] LABS: HEMATOCRIT 27.8 % (42-52); MEAN CORPUSCULAR HEMOGLOBIN 34.5 pg (25-34); MEAN CORPUSCULAR HGB CONC 34.5 g/dl (32-36); MEAN PLATELET VOLUME 10.9 fL (7.4-10.4); PLATELET COUNT 262 K/uL (130-400); RED BLOOD COUNT 2.78 M/uL (4.7-6.1); WHITE BLOOD COUNT 6.25 K/uL (4.8-10.8)
[2016-04-09 06:24] LABS: PARTIAL THROMBOPLASTIN RATIO 1.3
[2016-04-09 07:03] LABS: BUN/CREATININE RATIO 28.6 (10-20); CALCIUM 8.6 mg/dl (8.5-10.1); CREATININE 1.9 mg/dl (0.60-1.40)
[2016-04-09 07:04] LABS: POTASSIUM 4.6 mmol/L (3.5-5.1)
[2016-04-09 08:00] VITALS: BP 121/77; PULSE 80; TEMP 36.3; O2SAT 98
[2016-04-09] MEDS ORDERED: IRON SUCROSE INJ 100 MG in SODIUM CHLORIDE 0.9% 100ML 100 ML IV SCH (08:00)
[2016-04-09] MEDS: GABAPENTIN 300 MG CAP PO SCH (08:36)
[2016-04-09] MEDS: ALLOPURINOL 300 MG TAB PO SCH (08:36)
[2016-04-09] MEDS: PRIMIDONE 50 MG TAB PO SCH (08:37)
[2016-04-09] MEDS: METOPROLOL SUCC 50MG EXT REL TAB PO SCH (08:37)
[2016-04-09] MEDS: CALCIUM POLYCARBOPHIL 1 TAB PO SCH (08:38)
--- NOTE | 2016-04-09 09:12 | Cardiology Follow-Up ---
Subjective General Date of Service: Apr 09, 2016. Chief Complaint: Shortness of breath Pt evaluation today including: conversation w/ patient, physical exam, chart review, lab review, review of studies, review of inpatient medication list History of Present Illness Patient seen and examined. Feeling OK. Dyspnea with AM activities, resolving promptly with rest. No resting, nocturnal, or supine dyspnea. No chest pain. No overt palpitations. Renal dysfunction improved. Telemetry: Atrial fibrillation currently around 80 bpm. Heart rates ranging from 43 bpm (while sleeping) to 90 bpm. No pauses. April 07, 2016 TTE Interpretation Summary ([facility], Dr. Ervin Carlton): Normal LV chamber size with mild concentric LVH. Normal LV systolic function, EF 60-65%. No segmental left ventricular wall motion abnormalities are noted. Mild tricuspid regurgitation. Moderate left atrial enlargement. Mild right atrial enlargement. Allergies Coded Allergies: Sertraline (Verified Adverse Reaction, Unknown, Dizziness., 11/19/15) Reported by PT. Social History Smoking Status: Former Smoker (quit 35 years ago prior 1 ppd) Hx Tobacco Use In Past Year?: No (QUIT 35 YEARS AGO) Hx Alcohol Use - Type And Amou: Yes (2 drinks scotch/day) Hx Substance Use - Type And Am: No Problem List Medical Problems: (1) Alcohol intoxication Status: Acute (2) Atrial fibrillation with rapid ventricular response Status: Acute (3) Bronchitis Status: Acute (4) Cellulitis Status: Acute (5) Chest pain Status: Acute (6) Open nasal fracture Status: Acute Physical Exam Vital Signs Last Vital Signs Documentation Date Time Temp Pulse Resp B/P Pulse Ox O2 Delivery O2 Flow Rate FiO2 04/09/16 08:00 36.3 80 20 121/77 98 Room Air Physical Exam Constitutional: Level of Distress: NAD Psychiatric: Mental Status: active & alert Orientation: to time, to place, to person Memory: recent memory normal, remote memory normal Head: normocephalic, atraumatic Eyes: Pupils: PERRLA Neck: pertinent finding (Normal JVP) Lungs: Respiratory effort: no dyspnea Auscultation: no wheezing, no rales/crackles, no rhonchi, deminished air movement, decreased breath sounds Cardiovascular: Heart Auscultation: no rubs, II/ JAMA, irregular rate rhythm Abdomen: Bowel Sounds: normal Inspection & Palpation: soft, non-distended, no masses Extremities: no cyanosis, no edema, no clubbing Neurologic: Cranial Nerves: grossly intact Assessment and Plan Assessment and Plan New onset atrial fibrillation with a rapid ventricular response Duration unknown, seemingly greater than 48 hours. Rates controlled with Toprol XL 50 mg twice a day CHADS2 Score 3/6 (HTN, age, DM). Recent mechanical fall, daily alcohol use, chronic anemia, drop in Hgb with heparin, and age - risks appear to be greater than the benefit. Hypotension. Lisinopril and HCTZ discontinued. Acute kidney injury, improved. Suspect secondary to hypotension, bradycardia See above. Increase activity as tolerated. Outpatient Cardiology Follow-up in 3-4 weeks; office will contact patient post discharge. Cardiology attending: Pt seen and examined, agree with findings and assessment as per Son Olmedo. Pt feels well, would like to be discharged. Rates controlled, agree that he is not an anticoagulation candidate, risk of cva discussed, patient accepting. Ok to d/c home on current dose of Toprol. F/u with cardiology in 3-4 weeks. Laboratory Results Last 24 Hours Test 04/08/16 11:11 04/08/16 16:13 04/08/16 20:27 04/09/16 05:54 Bedside Glucose 158 mg/dl 157 mg/dl 149 mg/dl White Blood Count 6.25 K/uL Red Blood Count 2.78 M/uL Hemoglobin 9.6 g/dL Hematocrit 27.8 % Mean Corpuscular Volume 100.0 fL Mean Corpuscular Hemoglobin 34.5 pg Mean Corpuscular Hemoglobin Concent 34.5 g/dl RDW Standard Deviation 59.9 fL RDW Coefficient of Variation 16.4 % Platelet Count 262 K/uL Mean Platelet Volume 10.9 fL Activated Partial Thromboplast Time 32.7 SECONDS Partial Thromboplastin Ratio 1.3 Sodium Level 136 mmol/L Potassium Level 4.6 mmol/L Chloride Level 102 mmol/L Carbon Dioxide Level 25 mmol/L Anion Gap 9.0 mmol/L Blood Urea Nitrogen 54 mg/dl Creatinine 1.90 mg/dl Est Creatinine Clear Calc Drug Dose 28.6 ml/min Estimated GFR () 35.7 Estimated GFR (Non- 30.8 BUN/Creatinine Ratio 28.6 Random Glucose 132 mg/dl Calcium Level 8.6 mg/dl Test 04/09/16 06:42 Bedside Glucose 152 mg/dl
[2016-04-09 11:02] VITALS: BP 92/58; PULSE 72; TEMP 36.6; O2SAT 93
--- NOTE | 2016-04-09 16:30 | Progress Note ---
Internal Med Progress Note Date of Service: Apr 09, 2016. Provider Documentation: SUBJECTIVE: Patient is feeling much better today. No palpitations, Chest Pain/pressure or SOB.Feels stronger. His HR is in 70's and is in NSR. He is sitting in the chair and answers appropriately. OBJECTIVE: Vital Signs-as noted below Examination: General Appearance: WD/WN, no apparent distress, pleasant cooperative elderly male Head: normocephalic, atraumatic Eyes: normal inspection, PERRL, EOMI ENT: pharynx normal, mildly hard of hearing Neck: supple, no JVD, trachea midline Respiratory/Chest: lungs clear, normal breath sounds, no respiratory distress, no accessory muscle use Cardiovascular: no murmur, + irregularly irregular Abdomen/GI: normal bowel sounds, non tender, soft Extremities/Musculoskeletal: no calf tenderness, normal capillary refill, no pedal edema Neurologic/Psych: alert, normal mood/affect, oriented x 3, grossly nonfocal exam. + tremor bilateral arms Skin: normal color, warm/dry Lab data as noted below. ASSESSMENT & PLAN: New Onset Atrial Fibrillation With RVR: Rate initially 110s, now in 70s on Cardizem bolus/ drip; now in 80s. Clinically stable. CXR- mild cardiomegaly, mild pulmonary vascular congestion.Electrolytes WNL; no evidence infection -TSH is normal -Off Cardizem drip. -Also on propranolol for tremor but was not taking it regularly. Has been discontinued. -CHADS2 score = 3 for HTN, age, DM -Continue IV heparin. 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 -Noted cardiology consult. Thanks for input. Chest Pain: Resolved now. Possibly secondary to AF with RVR -Serial troponin negative -Check echo Acute Kidney Injury: Likely due to hypotension and possible volume depletion. -Started gentle hydration -Monitor GFR -Avoid any Nephrotoxin Hypertension: BP has been running low. -Continue HTCZ, lisinopril -Also on propranolol for tremor which has been changed to Toprol XL 50 mg BID. Diabetes Type II: We ll controlled with diet. HbA1c is 6.1. 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 -Continue gabapentin Chronic Anemia: Hg is 9.0; baseline mostly 11's -Question of remote hx of GIB- prior colonoscopy in 2006- ext hemorrhoids -Low Iron level so am giving Venofer DVT Prophylaxis: IV heparin Code Status: DNR per discussion upon admission Disposition: Discharge home later today. Follows with Dr. Kuo for primary care on 04/13/2016 @ 2.30 PM. Lives at home with his adult children Vital Signs: Date Time Temp Pulse Resp B/P Pulse Ox O2 Delivery O2 Flow Rate FiO2 04/09/16 12:00 Room Air 04/09/16 11:02 36.6 72 20 92/58 93 Room Air 04/09/16 08:00 36.3 80 20 121/77 98 Room Air 04/09/16 08:00 Room Air 04/09/16 04:20 36.4 64 18 96/59 94 Room Air 04/09/16 04:00 Room Air 04/09/16 00:00 Room Air 04/08/16 22:55 36.8 64 18 108/66 94 Room Air 04/08/16 20:07 36.6 76 20 117/70 93 04/08/16 20:00 Room Air Lab Results: Results Past 24 Hours Test 04/08/16 20:27 04/09/16 05:54 04/09/16 06:42 04/09/16 11:40 Range/Units Bedside Glucose 149 152 180 70-99 mg/dl White Blood Count 6.25 4.8-10.8 K/uL Red Blood Count 2.78 4.7-6.1 M/uL Hemoglobin 9.6 14.0-18.0 g/dL Hematocrit 27.8 42-52 % Mean Corpuscular Volume 100.0 80-100 fL Mean Corpuscular Hemoglobin 34.5 25-34 pg Mean Corpuscular Hemoglobin Concent 34.5 32-36 g/dl RDW Standard Deviation 59.9 36.4-46.3 fL RDW Coefficient of Variation 16.4 11.5-14.5 % Platelet Count 262 130-400 K/uL Mean Platelet Volume 10.9 7.4-10.4 fL Activated Partial Thromboplast Time 32.7 21.0-31.0 SECONDS Partial Thromboplastin Ratio 1.3 Sodium Level 136 136-145 mmol/L Potassium Level 4.6 3.5-5.1 mmol/L Chloride Level 102 98-107 mmol/L Carbon Dioxide Level 25 21-32 mmol/L Anion Gap 9.0 3-11 mmol/L Blood Urea Nitrogen 54 7-18 mg/dl Creatinine 1.90 0.60-1.40 mg/dl Est Creatinine Clear Calc Drug Dose 28.6 ml/min Estimated GFR () 35.7 Estimated GFR (Non- 30.8 BUN/Creatinine Ratio 28.6 10-20 Random Glucose 132 70-99 mg/dl Calcium Level 8.6 8.5-10.1 mg/dl
[2016-04-09] MEDS ORDERED: TPRSR50 PO (16:31)
[2016-04-09] MEDS ORDERED: LSN5 PO (16:33)
--- NOTE | 2016-04-09 16:33 | Discharge Instructions ---
Discharge Instructions Admission Reason for Admission: Atrial Fibrillation With Rvr Discharge Discharge Diagnosis / Problem: Atrial Fibrillation Discharge Goals Goal(s): Decrease discomfort, Improve function, Increase independence, Improve disease control, Improve nutritional status, Learn about illness, Diagnostic testing, Therapeutic intervention Activity Recommendations Activity Limitations: resume your previous activity (As Tolerated following fall precautions.) Lifting Limitations: no more than 10 pounds Exercise/Sports Limitations: as tolerated Shower/Bathe: no limitations . Instructions / Follow-Up Instructions / Follow-Up Take all your medications as directed. Avoid Caffeine products and alcohol. Follows with Dr. Kuo for primary care on 04/13/2016 @ 2.30 PM. Current Hospital Diet Patient's current hospital diet: AHA Diet (Heart Healthy), Diabetes Type 2 Diet Discharge Diet Recommended Diet: AHA Diet (Heart Healthy) Pending Studies Studies pending at discharge: no Laboratory Results Hemoglobin A1c Test 04/07/16 04:43 Range/Units Estimated Average Glucose 128 mg/dl Hemoglobin A1c 6.1 H 4.5-5.6 % Medical Emergencies . Who to Call and When: Medical Emergencies: If at any time you feel your situation is an emergency, please call 911 immediately. . Non-Emergent Contact Non-Emergency issues call your: Primary Care Provider . . "Provider Documentation" section prepared by Aki Souza. VTE Core Measure Inpt VTE Proph given/why not?: Unfractionated heparin SQ
--- NOTE | 2016-04-09 16:37 | Discharge Summary ---
Discharge Summary Admission Date: Apr 06, 2016 at 17:42 Discharge Date: Apr 09, 2016 Discharge Disposition: Home Principal Diagnosis: New Onset Atrial Fibrillation Chest Pain (Resolved) Acute Kidney Injury Secondary Diagnoses/Problems: Hypertension Diabetes Type II Essential Tremors Neuropathy Chronic Anemia Procedures: Echocardiogram Vaccinations: NONE Consultations: Cardiology Pending Studies/Follow-Up: Follow up with cardiology in 2-3 weeks as outpatient. Medication Reconciliation New Medications: Lisinopril (Lisinopril) 5 Mg Tab 1 TAB PO QDD, #30 TABS 1 Refill Metoprolol Succinate (Metoprolol Succinate ER) 50 Mg Tabcr 50 MG PO BID, #60 TABS 1 Refill Continued Medications: Allopurinol (Allopurinol) 300 Mg Tab 300 MG PO QAM Calcium Polycarbophil (Fibercon) 625 Mg Tab 2 CAP PO BID, CPLT Gabapentin (Gabapentin) 600 Mg Tab 900 MG PO BID, #270 Hydrochlorothiazide (Hctz) 12.5 Mg Cap 12.5 MG PO QAM Lactulose (Chronulac) 10 Gm/15 Ml Syrp 15 ML PO BID PRN for Constipation Primidone (Primidone) 50 Mg Tab 2 TABS PO BID Discontinued Medications: Lisinopril (Lisinopril) 10 Mg Tab 10 MG PO DAILY Propranolol (Inderal) 60 Mg Tab 120 MG PO BID, TAB Admission Information HPI (per Admitting provider): This is an 89 y/o male with PMH of DM type 2 diet controlled, HTN, CKD stage III , essential tremor, BPH, and other problems listed below who was sent to the ED from clinic with new onset atrial fibrillation with RVR. He was seen today in clinic by Belinda Carl PA-C and had EKG showing AF with RVR rate 108. Patient states he developed [place] yesterday with bending down and picking up a bucket of water which he typically does without issues. In addition yesterday he started feeling tight in his chest in substernal area, non-radiating, rated 1-2/10, which was constant until arriving the ER and starting on Cardizem drip. He is now chest pain free. He notes tenderness of his abdomen around periumbilical area starting yesterday which is resolved. He also note associated fatigue. He is constipated for past few days and PO intake has been decreased. He notes " bad knees" so generally takes the stairs very slowly without SOB. He reports falling 3 days ago due to stepping off the edge of a sidewalk and falling into a ferguson. No significant injury- states R shoulder was sore but now resolved. He notes chronic calf pain in R side and L side starting 1 week ago. He notes chronic chronic nasal congestion/ phlegm in throat, but now worsening. He denies diaphoresis, dizziness, weakness, numbness, palpitations, SOB at rest, N/ V/D, urinary changes, edema. Pt reports possible GIB, unknown details, 3+ years ago. No recent abnormal bleeding. Pt denies history of TIA, CVA, CHF, arrhythmia, CAD. Physical Exam (per Admitting): General Appearance: WD/WN, no apparent distress, + pertinent finding ( pleasant cooperative elderly male) Head: normocephalic, atraumatic Eyes: normal inspection, PERRL, EOMI ENT: pharynx normal, + pertinent finding (mildly hard of hearing) Neck: supple, no JVD, trachea midline Respiratory/Chest: lungs clear, normal breath sounds, no respiratory distress, no accessory muscle use Cardiovascular: no murmur, + irregularly irregular Abdomen/GI: normal bowel sounds, non tender, soft Extremities/Musculoskelatal: no calf tenderness, normal capillary refill, no pedal edema Neurologic/Psych: alert, normal mood/affect, oriented x 3, + pertinent finding (grossly nonfocal exam. + tremor bilateral arms) Skin: normal color, warm/dry Hospital Course New Onset Atrial Fibrillation With RVR: Rate initially 110s, now in 70s on Cardizem bolus/ drip; now in 80s. Clinically stable. CXR- mild cardiomegaly, mild pulmonary vascular congestion.Electrolytes WNL; no evidence infection -TSH is normal -Off Cardizem drip. -Also on propranolol for tremor but was not taking it regularly. Has been discontinued. -CHADS2 score = 3 for HTN, age, DM -Continue IV heparin. 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 -Noted cardiology consult. Thanks for input. Chest Pain: Resolved now. Possibly secondary to AF with RVR -Serial troponin negative -Check echo Acute Kidney Injury: Likely due to hypotension and possible volume depletion. -Started gentle hydration -Monitor GFR -Avoid any Nephrotoxin Hypertension: BP has been running low. -Continue HTCZ, lisinopril -Also on propranolol for tremor which has been changed to Toprol XL 50 mg BID. Diabetes Type II: We ll controlled with diet. HbA1c is 6.1. 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 -Continue gabapentin Chronic Anemia: Hg is 9.0; baseline mostly 11's -Question of remote hx of GIB- prior colonoscopy in 2006- ext hemorrhoids -Low Iron level so am giving Venofer DVT Prophylaxis: IV heparin Code Status: DNR per discussion upon admission Disposition: Discharge home later today. Follows with Dr. Kuo for primary care on 04/13/2016 @ 2.30 PM. Lives at home with his adult children Total time spent on discharge = 40 minutes. This includes examination of the patient, discharge planning, medication reconciliation, and communication with other providers. Discharge Instructions Discharge Discharge Diagnosis / Problem: Atrial Fibrillation Discharge Goals Goal(s): Decrease discomfort, Improve function, Increase independence, Improve disease control, Improve nutritional status, Learn about illness, Diagnostic testing, Therapeutic intervention Activity Recommendations Activity Limitations: resume your previous activity (As Tolerated following fall precautions.) Lifting Limitations: no more than 10 pounds Exercise/Sports Limitations: as tolerated Shower/Bathe: no limitations . Instructions / Follow-Up Instructions / Follow-Up Take all your medications as directed. Avoid Caffeine products and alcohol. Follows with Dr. Kuo for primary care on 04/13/2016 @ 2.30 PM. Additional Copies To Collin Kuo M.D.
[2016-04-09 16:54] VITALS: BP 92/58; PULSE 72; TEMP 36.6; O2SAT 93
[2016-04-09 19:48] LABS: ALBUMIN 3.6 G/DL (3.8-4.8); GAMMA GLOBULIN 1.2 G/DL (0.8-1.7); TOTAL PROTEIN 6.8 G/DL (6.2-8.3)
[2016-06-29] MEDS ORDERED: AMOX1TAB43 PO (13:29)
[2016-06-29] MEDS ORDERED: SYMIN INH ×2 (13:29→14:19)
[2016-06-29] MEDS ORDERED: IPRA1AER2 INH ×2 (13:29→14:18)
[2016-06-29] MEDS ORDERED: NRN600 PO (13:29)
== END 2016-04-09 17:28 | disposition home health service (06) | DRG 309 ==
LOC: ENRESERVDT → ENRESERVTM → C.EDB 15:30 → C.2T 17:42
PROVIDERS: ADMIT Family Medicine; ATTEND Emergency Medicine
DX: I48.91 Unspecified atrial fibrillation (principal); N17.9 Acute kidney failure, unspecified; N18.4 Chronic kidney disease, stage 4 (severe); E11.40 Type 2 diabetes mellitus with diabetic neuropathy, unspecified; I12.9 Hypertensive chronic kidney disease with stage 1 through stage 4 chronic kidney disease, or unspecified chronic kidney disease; E11.21 Type 2 diabetes mellitus with diabetic nephropathy; N40.0 Benign prostatic hyperplasia without lower urinary tract symptoms; K59.00 Constipation, unspecified; G25.0 Essential tremor; Z87.891 Personal history of nicotine dependence; D64.9 Anemia, unspecified; Z66 Do not resuscitate

== ENCOUNTER 2016-04-24 20:34 | Emergency (ER) | payer BC, OTHER ==
[~2016-04-24] VITALS: Ht 172.7 cm; Wt 91.2 kg
[~2016-04-24 20:34] MED LIST changes: -ALBU1AER9 INH; +ALL300 PO; -BENZ100C84 PO; -BROM0.07 OPR; +CALC625T PO; -DIPH-416 PO; +HYDR12.56 PO; -INDO-22 PO; +LACT10SO17 PO; +LSN5 PO; +MYS50 PO; -PRED1SUS3 OPR; -PROP1TAB PO; -PROP60TA19 PO; +TPRSR50 PO
[2016-04-24 20:37] VITALS: Ht 172.7 cm; Wt 91.2 kg
[2016-04-24 20:58] VITALS: O2SAT 96
[2016-04-24 21:01] VITALS: TEMP 36.9
[2016-04-24 21:09] LABS: HEMATOCRIT 31.8 % (42-52); MEAN CELL VOLUME 100.3 fL (80-100); MEAN CORPUSCULAR HEMOGLOBIN 33.1 pg (25-34); MEAN PLATELET VOLUME 10.3 fL (7.4-10.4); PLATELET COUNT 301 K/uL (130-400); RED BLOOD COUNT 3.17 M/uL (4.7-6.1); WHITE BLOOD COUNT 8.14 K/uL (4.8-10.8)
[2016-04-24 21:16] LABS: PARTIAL THROMBOPLASTIN RATIO 1.2
--- NOTE | 2016-04-24 21:29 | DIAGNOSTIC IMAGING REPORT ---
CHEST ONE VIEW PORTABLE CLINICAL HISTORY: Chest pain. Chest tightness. Fatigue. COMPARISON STUDY: Chest radiograph April 06, 2016. FINDINGS: There is no pneumothorax or pleural effusion. Cardiomediastinal silhouette is stable. Mild interstitial thickening is noted. There is no consolidation. IMPRESSION: 1. Mild age indeterminate interstitial thickening. 2. No consolidation identified. Electronically signed by: Blair Pyle M.D. 04/24/2016 9:28 PM Dictated Date/Time: 04/24/2016 9:26 PM
[2016-04-24] MEDS ORDERED: METOPROLOL SUCC 50MG EXT REL TAB PO STA (21:40)
--- NOTE | 2016-04-24 21:40 | EMERGENCY ROOM VISIT NOTE ---
History Report prepared by Deidra: Santana Early Under the Supervision of: Dr. Mela Frausto M.D. First contact with patient: 21:25 Chief Complaint: CHEST PAIN Stated Complaint: CHEST TIGHTNESS,FATIGUE,LOSS OF APPETITE Nursing Triage Summary: c/o lethargy all day with chest tightness and decreased appetite. History of Present Illness The patient is a 89 year old male who presents to the Emergency Room with complaints of resolved chest tightness that started around 1600 today. The patient states that he woke up feeling well this morning. He started to notice increased fatigue and a decreased appetite as the day continued on. By 1600, the patient was also experiencing chest tightness and shortness of breath. The patient was evaluated in this ED 3 weeks ago where he was diagnosed with new onset atrial fibrillation. He is taking metoprolol as prescribed. The patient denies nausea. Source of History: patient, family Onset: around 1600 today Position: chest Timing: resolved Modifying Factors (Relieving): other (None) Associated Symptoms: + SOB, + fatigue, No nausea Review of Systems See HPI for pertinent positives & negatives. A total of 10 systems reviewed and were otherwise negative. Past Medical & Surgical Medical Problems: (1) BPH (benign prostatic hypertrophy) (2) CKD (chronic kidney disease), stage III (3) Diabetic neuropathy (4) DM2 (diabetes mellitus, type 2) (5) Essential tremor (6) HTN (hypertension) (7) SOB (shortness of breath) Surgical Problems: (1) H/O inguinal hernia repair (2) H/O parotidectomy Family History Cardiac disorder FATHER Diabetes mellitus MOTHER Hypertension MOTHER Stroke MOTHER Social History Smoking Status: Never Smoker Alcohol Use: none, other Drug Use: none Marital Status: Housing Status: lives alone Occupation Status: retired Current/Historical Medications Scheduled Allopurinol (Allopurinol), 300 MG PO QAM Calcium Polycarbophil (Fibercon), 2 CAP PO BID Gabapentin (Gabapentin), 900 MG PO BID Hydrochlorothiazide (Hctz), 12.5 MG PO QAM Lisinopril (Lisinopril), 1 TAB PO QDD Metoprolol Succinate (Metoprolol Succinate ER), 50 MG PO BID Primidone (Primidone), 2 TABS PO BID Allergies Coded Allergies: Sertraline (Verified Adverse Reaction, Unknown, Dizziness., 11/19/15) Reported by PT. Physical Exam Vital Signs Date Time Temp Pulse Resp B/P Pulse Ox O2 Delivery O2 Flow Rate FiO2 04/24/16 23:28 72 20 148/90 94 Room Air 04/24/16 22:31 95 18 164/97 98 Room Air 04/24/16 21:19 73 04/24/16 21:01 36.9 79 20 159/91 96 Room Air 04/24/16 20:58 96 Room Air 04/24/16 20:58 79 20 159/91 96 Room Air 04/24/16 20:37 36.9 86 22 159/83 96 Room Air Physical Exam Vital signs reviewed. General: Well-appearing elderly male, in no significant distress. HEENT: No scleral icterus, PERRLA, neck supple. Atraumatic. Cardiovascular: Irregular and rate controlled, no extra sounds. Pulmonary: Clear to auscultation bilaterally, normal work of breathing. Abdomen: Soft, nontender, nondistended, positive bowel sounds. Musculoskeletal: Atraumatic, no peripheral edema. Neurologic: Patient awake alert and oriented x 3, full strength in all 4 extremities. Cranial nerves 2 through 12 grossly intact. Skin: Warm, dry, no rash Medical Decision & Procedures ER Provider Diagnostic Interpretation: X-ray results as stated below per interpretation by me and the radiologist: CHEST ONE VIEW PORTABLE CLINICAL HISTORY: Chest pain. Chest tightness. Fatigue. COMPARISON STUDY: Chest radiograph April 06, 2016. FINDINGS: There is no pneumothorax or pleural effusion. Cardiomediastinal silhouette is stable. Mild interstitial thickening is noted. There is no consolidation. IMPRESSION: 1. Mild age indeterminate interstitial thickening. 2. No consolidation identified. Electronically signed by: Blair Pyle M.D. 04/24/2016 9:28 PM Dictated Date/Time: 04/24/2016 9:26 PM Laboratory Results 04/24/16 20:55 04/24/16 20:55 Test 04/24/16 20:55 04/24/16 22:47 Red Blood Count 3.17 M/uL (4.7-6.1) Mean Corpuscular Volume 100.3 fL (80-100) Mean Corpuscular Hemoglobin 33.1 pg (25-34) Mean Corpuscular Hemoglobin Concent 33.0 g/dl (32-36) RDW Standard Deviation 61.5 fL (36.4-46.3) RDW Coefficient of Variation 16.6 % (11.5-14.5) Mean Platelet Volume 10.3 fL (7.4-10.4) Prothrombin Time 11.0 SECONDS (9.0-12.0) Prothromb Time International Ratio 1.0 (0.9-1.1) Activated Partial Thromboplast Time 31.6 SECONDS (21.0-31.0) Partial Thromboplastin Ratio 1.2 Anion Gap 8.0 mmol/L (3-11) Est Creatinine Clear Calc Drug Dose 42.2 ml/min Estimated GFR () 56.1 Estimated GFR (Non- 48.4 BUN/Creatinine Ratio 21.4 (10-20) Calcium Level 9.0 mg/dl (8.5-10.1) Total Bilirubin 0.9 mg/dl (0.2-1) Aspartate Amino Transf (AST/SGOT) 21 U/L (15-37) Alanine Aminotransferase (ALT/SGPT) 24 U/L (12-78) Alkaline Phosphatase 121 U/L (45-117) Total Creatine Kinase 24 U/L (39-308) Creatine Kinase MB 0.6 ng/ml (0.5-3.6) Creatine Kinase MB Ratio 2.5 (0-3.0) Total Protein 8.1 gm/dl (6.4-8.2) Albumin 3.6 gm/dl (3.4-5.0) Globulin 4.5 gm/dl (2.5-4.0) Albumin/Globulin Ratio 0.8 (0.9-2) Bedside Troponin I 0.000 ng/ml (0-0.045) Laboratory results per my review. Medications Administered Medications (Trade) Dose Ordered Sig/Prema Route Start Time Stop Time Status Last Admin Dose Admin Metoprolol Succinate (Toprol Xl Tab) 50 mg NOW STAT PO 04/24/16 21:40 04/24/16 21:41 DC 04/24/16 22:30 50 MG ECG Indication: chest pain Rate (beats per minute): 83 Rhythm: atrial fibrillation Findings: no acute ischemic change, other (Occasional aberrancy) ED Course 2133: Past medical records reviewed. The patient was evaluated in room C6. A complete history and physical examination was performed. 2139: Ordered Metoprolol Succinate 50 mg PO. 2307: Upon reevaluation, the patient appeared to have improvement of his symptoms. I discussed findings with the patient and his family. They verbalized agreement of the treatment plan. He was discharged home. Medical Decision DDx: Acute coronary syndrome, pulmonary embolus, aortic dissection, musculoskeletal pain, pneumonia, pleural effusion, pneumothorax This pt was evaluated and appeared to be in no distress. IV access was obtained and lab work was drawn. Pt was placed on the environmental monitoring technician. He was found to be in a rate controlled atrial fibrillation. EKG revealed the same, no evidence of acute ischemic changes. Lab work revealed a chronic anemia. Glucose was mildly elevated and cardiac enzymes were negative. CXR revealed chronic changes. Pt was reevaluated and doing well. He was felt stable for d/ c. He will f/u with his doctor regarding the fatigue. I suspect this is r/t new B-Mechelle therapy and chronic afib at 89 yo. His daughter seemed happy with plan and agrees. They will return to the ED for worsening of symptoms or any medical concerns. Impression Primary Impression: Atrial fibrillation, controlled Additional Impressions: Central chest pain Fatigue Scribe Attestation The scribe's documentation has been prepared under my direction and personally reviewed by me in its entirety. I confirm that the note above accurately reflects all work, treatment, procedures, and medical decision making performed by me. Departure Information Dispostion Home / Self-Care Referrals Collin Kuo M.D. (PCP) Forms HOME CARE DOCUMENTATION FORM, IMPORTANT VISIT INFORMATION Patient Instructions My [facility] Additional Instructions Diagnosis: Central chest pain, atrial fibrillation Continue your medications as prescribed. Follow-up with Dr. Carlton as scheduled in 2 days. Return to the ER for worsening of symptoms or any medical concerns. Problem Qualifiers Additional Impressions: Fatigue Encounter type: initial encounter
[2016-04-24 21:42] LABS: BUN/CREATININE RATIO 21.4 (10-20); CREATININE 1.3 mg/dl (0.60-1.40); POTASSIUM 4.3 mmol/L (3.5-5.1)
[2016-04-24 21:47] LABS: ALB/GLOB RATIO 0.8 (0.9-2); CKMB/CK RATIO 2.5 (0-3.0)
[2016-04-24 23:28] VITALS: BP 148/90; PULSE 72; O2SAT 94
[2016-06-29] MEDS ORDERED: AMOX1TAB43 PO (13:29)
[2016-06-29] MEDS ORDERED: NRN600 PO (13:29)
[2016-06-29] MEDS ORDERED: SYMIN INH ×2 (13:29→14:19)
[2016-06-29] MEDS ORDERED: IPRA1AER2 INH ×2 (13:29→14:18)
== END 2016-04-24 23:48 | disposition home or self-care (01) ==
LOC: C.EDB 20:35 → C.EDC 23:48
DX: I48.91 Unspecified atrial fibrillation (principal); R07.9 Chest pain, unspecified; R53.83 Other fatigue; N40.0 Benign prostatic hyperplasia without lower urinary tract symptoms; N18.3 Chronic kidney disease, stage 3 (moderate); E11.40 Type 2 diabetes mellitus with diabetic neuropathy, unspecified; I12.9 Hypertensive chronic kidney disease with stage 1 through stage 4 chronic kidney disease, or unspecified chronic kidney disease

== ENCOUNTER 2016-06-26 00:44 | Inpatient (IN) | payer BC, OTHER ==
[~2016-06-26] VITALS: Ht 172.7 cm; Wt 88.6 kg
[2016-06-26] VITALS (12 sets, daily range): BP systolic 95–143; BP diastolic 57–77; PULSE 50–92; TEMP 36.7–37.1; O2SAT 91–98; BMI 29.5
[~2016-06-26 00:44] MED LIST changes: -LACT10SO17 PO
--- NOTE | 2016-06-26 01:14 | EMERGENCY ROOM VISIT NOTE ---
History Report prepared by Jeffryibarnold: José Johnson Under the Supervision of: Patti DavilaO. First contact with patient: 00:58 Chief Complaint: SHORTNESS OF BREATH Stated Complaint: SHORTNESS OF BREATH History of Present Illness The patient is an 89 year old male who presents to the Emergency Room with complaints of persistent shortness of breath. The patient took a sip of his drink which went down the wrong tube around 1700. The patient has since been coughing which is making it difficult to breath. He was completely asymptomatic prior to aspirating. The drink was scotch. The patient has a history of atrial fibrillation. Source of History: patient Onset: 1700 Position: other (respiratory) Quality: other (short of breath) Timing: other (persistent) Associated Symptoms: + cough Review of Systems See HPI for pertinent positives and negatives. A total of ten systems were reviewed and were otherwise negative. Past Medical & Surgical Medical Problems: (1) BPH (benign prostatic hypertrophy) (2) CKD (chronic kidney disease), stage III (3) Diabetic neuropathy (4) DM2 (diabetes mellitus, type 2) (5) Essential tremor (6) HTN (hypertension) (7) SOB (shortness of breath) Surgical Problems: (1) H/O inguinal hernia repair (2) H/O parotidectomy Family History Cardiac disorder FATHER Diabetes mellitus MOTHER Hypertension MOTHER Stroke MOTHER Social History Smoking Status: Former Smoker Alcohol Use: none, other Drug Use: none Marital Status: Housing Status: lives alone Occupation Status: retired Current/Historical Medications Scheduled Allopurinol (Allopurinol), 300 MG PO QAM Calcium Polycarbophil (Fibercon), 2 CAP PO BID Gabapentin (Gabapentin), 900 MG PO BID Hydrochlorothiazide (Hctz), 12.5 MG PO QAM Lisinopril (Zestril), 5 MG PO DAILY Metoprolol Tartrate (Lopressor) (Lopressor), 50 MG PO BID Primidone (Primidone), 2 TABS PO BID Allergies Coded Allergies: Sertraline (Verified Adverse Reaction, Unknown, Dizziness., 06/26/16) Reported by PT. Physical Exam Vital Signs Date Time Temp Pulse Resp B/P Pulse Ox O2 Delivery O2 Flow Rate FiO2 06/26/16 02:45 105 20 143/80 94 Nasal Cannula 4.0 06/26/16 02:15 99 06/26/16 02:11 92 Nasal Cannula 4.0 06/26/16 02:11 87 Room Air 06/26/16 01:02 92 Room Air 06/26/16 00:49 36.9 97 18 151/79 92 Room Air Physical Exam GENERAL: Awake, alert, well-appearing, in no distress HENT: Normocephalic, atraumatic. Oropharynx unremarkable. EYES: Normal conjunctiva. Sclera non-icteric. NECK: Supple. No nuchal rigidity. FROM. No JVD. RESPIRATORY: Wheezing and rhonchi bilaterally. CARDIAC: Regular rate,irregularly irregular rhythm. Extremities warm and well perfused. Pulses equal. ABDOMEN: Soft, non-distended. No tenderness to palpation. No rebound or guarding. No masses. RECTAL: Deferred. MUSCULOSKELETAL: Chest examination reveals no tenderness. The back is symmetrical on inspection without obvious abnormality. There is no CVA tenderness to palpation. No joint edema. LOWER EXTREMITIES: Calves are equal size bilaterally and non-tender. Bilateral lower extremity pitting edema. No discoloration. NEURO: Normal sensorium. No sensory or motor deficits noted. SKIN: No rash or jaundice noted. Medical Decision & Procedures ER Provider Diagnostic Interpretation: X-ray: Per my interpretation. Chest One View Portable: Increased lung marking bilaterally consistent with early CHF. Right lower lobe infiltrate. Laboratory Results 06/26/16 02:20 Red Blood Count 3.44, Mean Corpuscular Volume 100.0, Mean Corpuscular Hemoglobin 32.8, Mean Corpuscular Hemoglobin Concent 32.8, Mean Platelet Volume 10.3, Neutrophils (%) (Auto) 84.2, Lymphocytes (%) (Auto) 8.7, Monocytes (%) ( Auto) 5.7, Eosinophils (%) (Auto) 0.8, Basophils (%) (Auto) 0.3, Neutrophils # ( Auto) 9.45, Lymphocytes # (Auto) 0.97, Monocytes # (Auto) 0.64, Eosinophils # ( Auto) 0.09, Basophils # (Auto) 0.03 06/26/16 02:20 Test 06/26/16 02:20 06/26/16 02:50 White Blood Count 11.21 K/uL (4.8-10.8) Red Blood Count 3.44 M/uL (4.7-6.1) Hemoglobin 11.3 g/dL (14.0-18.0) Hematocrit 34.4 % (42-52) Mean Corpuscular Volume 100.0 fL (80-100) Mean Corpuscular Hemoglobin 32.8 pg (25-34) Mean Corpuscular Hemoglobin Concent 32.8 g/dl (32-36) Platelet Count 222 K/uL (130-400) Mean Platelet Volume 10.3 fL (7.4-10.4) Neutrophils (%) (Auto) 84.2 % Lymphocytes (%) (Auto) 8.7 % Monocytes (%) (Auto) 5.7 % Eosinophils (%) (Auto) 0.8 % Basophils (%) (Auto) 0.3 % Neutrophils # (Auto) 9.45 K/uL (1.4-6.5) Lymphocytes # (Auto) 0.97 K/uL (1.2-3.4) Monocytes # (Auto) 0.64 K/uL (0.11-0.59) Eosinophils # (Auto) 0.09 K/uL (0-0.5) Basophils # (Auto) 0.03 K/uL (0-0.2) RDW Standard Deviation 60.2 fL (36.4-46.3) RDW Coefficient of Variation 16.5 % (11.5-14.5) Immature Granulocyte % (Auto) 0.3 % Immature Granulocyte # (Auto) 0.03 K/uL (0.00-0.02) Anion Gap 4.0 mmol/L (3-11) Est Creatinine Clear Calc Drug Dose 45.4 ml/min Estimated GFR () 61.8 Estimated GFR (Non- 53.3 BUN/Creatinine Ratio 30.6 (10-20) Calcium Level 9.0 mg/dl (8.5-10.1) Total Bilirubin 2.3 mg/dl (0.2-1) Aspartate Amino Transf (AST/SGOT) 50 U/L (15-37) Alanine Aminotransferase (ALT/SGPT) 58 U/L (12-78) Alkaline Phosphatase 115 U/L (45-117) Total Protein 8.1 gm/dl (6.4-8.2) Albumin 4.1 gm/dl (3.4-5.0) Globulin 4.0 gm/dl (2.5-4.0) Albumin/Globulin Ratio 1.0 (0.9-2) Urine Color YELLOW Urine Appearance CLEAR (CLEAR) Urine pH 5.0 (4.5-7.5) Urine Specific [place] 1.014 (1.000-1.030) Urine Protein NEG (NEG) Urine Glucose (UA) NEG (NEG) Urine Ketones TRACE (NEG) Urine Occult Blood NEG (NEG) Urine Nitrite NEG (NEG) Urine Bilirubin NEG (NEG) Urine Urobilinogen NEG (NEG) Urine Leukocyte Esterase NEG (NEG) Laboratory results reviewed by me Medications Administered Medications (Trade) Dose Ordered Sig/Prema Route Start Time Stop Time Status Last Admin Dose Admin Albuterol/ Ipratropium (Duoneb) 3 ml Q4R INH 06/26/16 04:00 07/26/16 03:59 06/26/16 01:21 3 ML Furosemide (Lasix Inj) 40 mg NOW STAT IV 06/26/16 01:44 06/26/16 01:45 DC 06/26/16 02:19 40 MG Levofloxacin (Levaquin / D5W) 750 mg NOW STAT IV 06/26/16 01:52 06/26/16 01:54 DC 06/26/16 02:19 750 MG Metronidazole (Flagyl / Nss) 500 mg NOW STAT IV 06/26/16 01:52 06/26/16 01:54 DC 06/26/16 02:19 500 MG ECG Indication: SOB/dyspnea Rate (beats per minute): 93 Rhythm: atrial fibrillation Findings: other (non-specific T wave abnormality. No obvoius ST segment elevation.) ED Course 0110: The patient was evaluated in room A10. A complete history and physical exam was performed. 0144: Lasix 40 mg IV. 0343: The patient will be evaluated by the [facility] Hospitalist Service. 0400: DuoNeb 3 ml INH. Medical Decision Differential diagnosis includes bronchitis, UTI, pneumonia, CHF. Patient appears to have aspiration pneumonia mild hypoxia, case discussed with hospitalist we will admit I started the patient on Levaquin and Flagyl. Consults Time Called: 031 Consulting Physician: The patient will be evaluated by the [facility] Hospitalist Service. Returned Call: [phone] Impression Primary Impression: Aspiration pneumonia Scribe Attestation The scribe's documentation has been prepared under my direction and personally reviewed by me in its entirety. I confirm that the note above accurately reflects all work, treatment, procedures, and medical decision making performed by me. Departure Information Dispostion Being Evaluated By Hospitalist Referrals No Doctor, Assigned (PCP) Patient Instructions My [facility] Problem Qualifiers Primary Impression: Aspiration pneumonia Aspiration pneumonia type: unspecified Laterality: right Lung location: lower lobe of lung Qualified Codes: J69.0 - Pneumonitis due to inhalation of food and vomit
[2016-06-26] MEDS ORDERED: ALBUT/IPRATROP 3MG/0.5MG NEB 3 ML VIAL ONE (01:19)
[2016-06-26] MEDS: ALBUT/IPRATROP 3MG/0.5MG NEB 3 ML VIAL INH SCH ×6 (01:21→19:58)
[2016-06-26] MEDS ORDERED: FUROSEMIDE 40 MG/4 ML VIAL IV STA (01:44)
[2016-06-26] MEDS ORDERED: LEVAQUIN 750MG / 150ML D5W IV STA (01:52)
[2016-06-26] MEDS ORDERED: METRONIDAZOLE 500MG / 100ML NSS IV STA (01:52)
[2016-06-26] MEDS ORDERED: LISI-729 PO (01:58)
[2016-06-26] MEDS ORDERED: METO50TA16 PO (01:58)
[2016-06-26 02:30] LABS: BASO % 0.3 %; BASO ABS # 0.03 K/uL (0-0.2); COMPLETE YES; EOS % 0.8 %; HEMATOCRIT 34.4 % (42-52); IG% 0.3 %; LYMPH % 8.7 %; LYMPH ABS # 0.97 K/uL (1.2-3.4); MEAN CORPUSCULAR HEMOGLOBIN 32.8 pg (25-34); MEAN CORPUSCULAR HGB CONC 32.8 g/dl (32-36); MEAN PLATELET VOLUME 10.3 fL (7.4-10.4); MONO % 5.7 %; NEUT % 84.2 %; PLATELET COUNT 222 K/uL (130-400); RED BLOOD COUNT 3.44 M/uL (4.7-6.1); WHITE BLOOD COUNT 11.21 K/uL (4.8-10.8)
[2016-06-26 02:54] LABS: BUN/CREATININE RATIO 30.6 (10-20); CREATININE 1.2 mg/dl (0.60-1.40)
[2016-06-26 03:00] LABS: URINE APPEARANCE CLEAR (CLEAR); URINE BILIRUBIN NEG (NEG); URINE COLOR YELLOW; URINE NITRITE NEG (NEG); URINE SPECIFIC GRAVITY 1.014 (1.000-1.030); UROBILINOGEN NEG (NEG)
[2016-06-26 03:15] LABS: MANUAL MICROSCOPIC REQUIRED? NO; REVIEW REQ? NO
--- NOTE | 2016-06-26 03:49 | History and Physical ---
History & Physical Date & Time of Service: Jun 26, 2016 at 03:49 Chief Complaint: Shortness Of Breath Primary Care Physician: Collin Kuo M.D. History of Present Illness Source: patient Patient is a 89 Yr old male with PMH of DM type 2 diet controlled, HTN, CKD stage III, essential tremor, BPH, Afib not on anticoagulation and other comorbidities presents with sudden onset of SOB, coughing after a choking episode while drinking alcohol yesterday evening. Patient states he is doing well until the choking episode occurred. States having worsening cough with clear expectoration, denies hemoptysis. Also had SOB and is found to be hypoxic at 87% on RA which improved with oxygen while in ED. He states having a a brief episode of chest pain secondary to chocking which resolved. He is not on oxygen at home. Denies any history of fever, chills, nausea, vomiting, abd pain, diarrhea, urinary symptoms, palpitations, dizziness. He also started to notice increased B/L LE swelling since few days but denies SOB prior to today. Past Medical/Surgical History Medical Problems: (1) BPH (benign prostatic hypertrophy) Status: Chronic (2) CKD (chronic kidney disease), stage III Status: Chronic (3) Diabetic neuropathy Status: Chronic (4) DM2 (diabetes mellitus, type 2) Status: Chronic (5) Essential tremor Status: Chronic (6) HTN (hypertension) Status: Chronic Surgical Problems: (1) H/O inguinal hernia repair Status: Chronic (2) H/O parotidectomy Status: Chronic Family History Cardiac disorder FATHER Diabetes mellitus MOTHER Hypertension MOTHER Stroke MOTHER Social History Smoking Status: Former Smoker Alcohol Use: socially Drug Use: none Marital Status: Housing status: lives with family Occupational Status: retired Immunizations History of Influenza Vaccine: Yes Influenza Vaccine Date: Jan 01, 2012 History of Tetanus Vaccine?: Yes Tetanus Immunization Date: Mar 02, 2006 History of Pneumococcal: Yes Pneumococcal Date: Mar 02, 2006 History of Hepatitis B Vaccine: No Multi-Drug Resistant Organisms History of MDRO: No Allergies Coded Allergies: Sertraline (Verified Adverse Reaction, Unknown, Dizziness., 06/26/16) Reported by PT. Home Medications Scheduled Allopurinol (Allopurinol), 300 MG PO QAM Calcium Polycarbophil (Fibercon), 2 CAP PO BID Gabapentin (Gabapentin), 900 MG PO BID Hydrochlorothiazide (Hctz), 12.5 MG PO QAM Lisinopril (Zestril), 5 MG PO DAILY Metoprolol Tartrate (Lopressor) (Lopressor), 50 MG PO BID Primidone (Primidone), 2 TABS PO BID Review of Systems See HPI for pertinent positives & negatives. A total of 10 systems reviewed and were otherwise negative. Physical Exam Vital Signs Date Time Temp Pulse Resp B/P Pulse Ox O2 Delivery O2 Flow Rate FiO2 06/26/16 02:45 105 20 143/80 94 Nasal Cannula 4.0 06/26/16 02:15 99 06/26/16 02:11 92 Nasal Cannula 4.0 06/26/16 02:11 87 Room Air 06/26/16 01:02 92 Room Air 06/26/16 00:49 36.9 97 18 151/79 92 Room Air General Appearance: WD/WN, no apparent distress Head: normocephalic, atraumatic Eyes: normal inspection, PERRL, EOMI, sclerae normal ENT: normal ENT inspection, hearing grossly normal Neck: supple, trachea midline Respiratory/Chest: chest non-tender, normal breath sounds, no respiratory distress, no accessory muscle use, + rhonchi (B/L predominantly on left lower base) Cardiovascular: no murmur, + tachycardia, + irregularly irregular, + pertinent finding (B/L LE edema 2 +) Abdomen/GI: normal bowel sounds, non tender, soft Back: normal inspection Extremities/Musculoskelatal: normal inspection, no calf tenderness, + pertinent finding (B/L LE edema ) Neurologic/Psych: ore feeder II-XII nml as tested, no motor/sensory deficits, alert, oriented x 3 Skin: normal color, warm/dry Lymphatic: no adenopathy Diagnostics Laboratory Results Results Past 24 Hours Test 06/26/16 02:20 06/26/16 02:50 Range/Units White Blood Count 11.21 4.8-10.8 K/uL Red Blood Count 3.44 4.7-6.1 M/uL Hemoglobin 11.3 14.0-18.0 g/dL Hematocrit 34.4 42-52 % Mean Corpuscular Volume 100.0 80-100 fL Mean Corpuscular Hemoglobin 32.8 25-34 pg Mean Corpuscular Hemoglobin Concent 32.8 32-36 g/dl Platelet Count 222 130-400 K/uL Mean Platelet Volume 10.3 7.4-10.4 fL Neutrophils (%) (Auto) 84.2 % Lymphocytes (%) (Auto) 8.7 % Monocytes (%) (Auto) 5.7 % Eosinophils (%) (Auto) 0.8 % Basophils (%) (Auto) 0.3 % Neutrophils # (Auto) 9.45 1.4-6.5 K/uL Lymphocytes # (Auto) 0.97 1.2-3.4 K/uL Monocytes # (Auto) 0.64 0.11-0.59 K/uL Eosinophils # (Auto) 0.09 0-0.5 K/uL Basophils # (Auto) 0.03 0-0.2 K/uL RDW Standard Deviation 60.2 36.4-46.3 fL RDW Coefficient of Variation 16.5 11.5-14.5 % Immature Granulocyte % (Auto) 0.3 % Immature Granulocyte # (Auto) 0.03 0.00-0.02 K/uL Sodium Level 140 136-145 mmol/L Potassium Level 4.0 3.5-5.1 mmol/L Chloride Level 105 98-107 mmol/L Carbon Dioxide Level 31 21-32 mmol/L Anion Gap 4.0 3-11 mmol/L Blood Urea Nitrogen 37 7-18 mg/dl Creatinine 1.20 0.60-1.40 mg/dl Est Creatinine Clear Calc Drug Dose 45.4 ml/min Estimated GFR () 61.8 Estimated GFR (Non- 53.3 BUN/Creatinine Ratio 30.6 10-20 Random Glucose 145 70-99 mg/dl Calcium Level 9.0 8.5-10.1 mg/dl Total Bilirubin 2.3 0.2-1 mg/dl Aspartate Amino Transf (AST/SGOT) 50 15-37 U/L Alanine Aminotransferase (ALT/SGPT) 58 12-78 U/L Alkaline Phosphatase 115 45-117 U/L Total Protein 8.1 6.4-8.2 gm/dl Albumin 4.1 3.4-5.0 gm/dl Globulin 4.0 2.5-4.0 gm/dl Albumin/Globulin Ratio 1.0 0.9-2 Urine Color YELLOW Urine Appearance CLEAR CLEAR Urine pH 5.0 4.5-7.5 Urine Specific [place] 1.014 1.000-1.030 Urine Protein NEG NEG Urine Glucose (UA) NEG NEG Urine Ketones TRACE NEG Urine Occult Blood NEG NEG Urine Nitrite NEG NEG Urine Bilirubin NEG NEG Urine Urobilinogen NEG NEG Urine Leukocyte Esterase NEG NEG Microbiology Results 06/26/16 Blood Culture, Received Pending 06/26/16 Blood Culture, Received Pending Diagnostic Radiology CXR: Increased lung marking bilaterally consistent with early CHF. Possible Right lower lobe infiltrate. 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
[2016-06-26] MEDS ORDERED: ACETAMINOPHEN 325 MG TAB PO PRN (04:00)
[2016-06-26] MEDS ORDERED: ONDANSETRON INJ 2 MG/ML 2 ML VIAL IV PRN (04:00)
[2016-06-26] MEDS ORDERED: DEXTROSE 50% 50 ML SYR IV PRN (05:00)
[2016-06-26] MEDS ORDERED: GLUCAGON FOR INJ 1 MG VIAL SQ PRN (05:00)
[2016-06-26] MEDS ORDERED: GLUCOSE 10 TABS/TUBE PO PRN (05:00)
[2016-06-26] MEDS ORDERED: GLUCOSE 40% GEL 15 GM TUBE PO PRN (05:00)
[2016-06-26] MEDS ORDERED: LEVOFLOXACIN CONSULT ACTIVE PRN (07:45)
--- NOTE | 2016-06-26 08:05 | DIAGNOSTIC IMAGING REPORT ---
SINGLE VIEW CHEST CLINICAL HISTORY: Dyspnea. FINDINGS: An AP, portable, upright chest radiograph is compared to study dated 04/24/2016. Correlation is made with chest CT dated 07/18/2015. The examination is degraded by portable technique and patient rotation. The heart is enlarged and and there is atherosclerotic calcification of the thoracic aorta. There is pulmonary vascular congestion. Chronic interstitial thickening is unchanged. Bibasilar atelectasis is noted. No airspace consolidation is seen typical for pneumonia and there is no large pleural effusion. No pneumothorax is seen. The skeletal structures are osteopenic. The bony thorax is grossly intact. Arthritic change is seen in the shoulders and thoracic spine IMPRESSION: Cardiomegaly with evidence of congestive failure. Electronically signed by: Sharif Espinoza M.D. 06/26/2016 8:03 AM Dictated Date/Time: 06/26/2016 7:59 AM
[2016-06-26] MEDS: PRIMIDONE 50 MG TAB PO SCH ×2 (08:25→20:44)
[2016-06-26] MEDS: LISINOPRIL 5 MG TAB PO SCH (08:26)
[2016-06-26] MEDS: ALLOPURINOL 300 MG TAB PO SCH (08:27)
[2016-06-26] MEDS: HYDROCHLOROTHIAZIDE 25 MG TAB PO SCH (08:27)
[2016-06-26] MEDS: METOPROLOL TARTRATE 50 MG TAB PO SCH ×2 (08:28→20:45)
[2016-06-26] MEDS: INSULIN ASPART 100 UNITS/ML 3 ML PEN SC SCH ×4 (08:31→20:46)
[2016-06-26] MEDS ORDERED: FUROSEMIDE INJ 40 MG in SYRINGE 0 ML IV SCH (09:00)
[2016-06-26] MEDS ORDERED: GABAPENTIN 600 MG TAB PO SCH (09:00)
[2016-06-26 09:09] LABS: INR 1.2 (0.9-1.1); PROTHROMBIN TIME (PATIENT) 12.6 SECONDS (9.0-12.0)
[2016-06-26] MEDS ORDERED: METRONIDAZOLE / NSS 500 MG in PREMIXED NSS 100 ML IV SCH (10:00)
[2016-06-26] MEDS ORDERED: LORAZEPAM 1 MG TAB PO PRN (11:45)
[2016-06-26] MEDS: AMOXICILLIN/CLAVULANATE TAB 875 MG TAB PO SCH ×2 (12:43→16:45)
[2016-06-26] MEDS: THIAMINE HCL 100 MG TAB PO SCH (12:43)
[2016-06-26] MEDS ORDERED: HEPARIN SOD 5000 UNIT/0.5 ML CARP SQ SCH (14:00)
--- NOTE | 2016-06-26 15:05 | ECHOCARDIOGRAM REPORT ---
*NOTICE TO RECEIVING DEMOCRAT AGENCY This information is strictly Confidential and protected under [place] law. [place] law prohibits you from making any further disclosure of this information unless further disclosure is expressly permitted by the written consent of the person to whom it pertains or is authorized by law. A general authorization for the release of medical or other information is not sufficient for this purpose. Hospital accepts no responsibility if the information is made available to any other person, INCLUDING THE PATIENT. Interpretation Summary * Name: JONATHAN KELLOGG Study Date: 06/26/2016 09:06 AM BP: 122/57 mmHg * Patient Location: C.2T\S\S229\S\1 HR: 83 * : 1925 (M/d/yyyy) Gender: Male Height: 68 in * Age: 89 yrs Ethnicity: [place] Weight: 197 lb * Ordering Physician: Kaden Farnsworth * Referring Physician: Self, Referred * Performed By: Ann Resendiz RDCS * * Reason For Study: Congestive heart failure * BSA: 2.0 m2 * -- Conclusions -- * The left ventricle is normal in size. * Left ventricular systolic function is normal. * Ejection Fraction = 55-60%. * The right ventricular systolic function is normal. * There is mild mitral regurgitation. * There is mild tricuspid regurgitation. Procedure Details * A complete two-dimensional transthoracic echocardiogram was performed (2D, M-mode, Doppler and color flow Doppler). Left Ventricle * The left ventricle is normal in size. * There is normal left ventricular wall thickness. * Ejection Fraction = 55-60%. * Left ventricular systolic function is normal. * The left ventricular wall motion is normal. Right Ventricle * The right ventricle is normal size. * The right ventricular systolic function is normal. Atria * The left atrium is mildly dilated. * The right atrium is mildly dilated. * The interatrial septum is intact with no evidence for an atrial septal defect. Mitral Valve * There is moderate mitral annular calcification. * There is mild mitral regurgitation. Tricuspid Valve * The tricuspid valve anatomy is normal. * There is mild tricuspid regurgitation. Aortic Valve * The aortic valve is tricuspid. The leaflet thickness if normal. There is no aortic stenosis, and no significant insufficiency. * Aortic stenosis is absent. * There is no significant aortic regurgitation. Pulmonic Valve * The pulmonic valve is not well seen, but is grossly normal. * Mild pulmonic valvular regurgitation. Great Vessels * The aortic root and proximal ascending aorta are normal sized. Pericardium/Pleural * There is no pericardial effusion. MMode 2D Measurements and Calculations IVSd 1.1 cm LVIDd 5.1 cm LVIDs 3.6 cm LVPWd 1.2 cm IVS/LVPW 0.91 FS 30.0 % EDV(Teich) 123.9 ml ESV(Teich) 53.4 ml EF(Teich) 56.9 % EDV(cubed) 132.8 ml ESV(cubed) 45.6 ml EF(cubed) 65.7 % LV mass(C)d 220.9 grams LV mass(C)dI 108.8 grams/m\S\2 CO(Teich) 4.6 l/min CI(Teich) 2.3 l/min/m\S\2 SV(Teich) 70.5 ml SI(Teich) 34.7 ml/m\S\2 CO(cubed) 5.7 l/min CI(cubed) 2.8 l/min/m\S\2 SV(cubed) 87.3 ml SI(cubed) 43.0 ml/m\S\2 Ao root diam 3.5 cm Ao root area 9.8 cm\S\2 ACS 2.1 cm LA dimension 4.2 cm asc Aorta Diam 3.4 cm LA/Ao 1.2 LVOT diam 2.0 cm LVOT area 3.1 cm\S\2 LVAd ap4 17.1 cm\S\2 LVLd ap4 6.9 cm EDV(MOD-sp4) 34.3 ml LVAs ap4 10.6 cm\S\2 LVLs ap4 6.3 cm ESV(MOD-sp4) 14.9 ml EF(MOD-sp4) 56.6 % LVAd ap2 20.7 cm\S\2 LVLd ap2 7.3 cm EDV(MOD-sp2) 48.9 ml LVAs ap2 12.0 cm\S\2 LVLs ap2 5.8 cm ESV(MOD-sp2) 21.3 ml EF(MOD-sp2) 56.4 % CO(MOD-sp4) 1.3 l/min CI(MOD-sp4) 0.62 l/min/m\S\2 SV(MOD-sp4) 19.4 ml SI(MOD-sp4) 9.6 ml/m\S\2 CO(MOD-sp2) 1.8 l/min CI(MOD-sp2) 0.88 l/min/m\S\2 SV(MOD-sp2) 27.6 ml SI(MOD-sp2) 13.6 ml/m\S\2 Doppler Measurements and Calculations MV E max konstantin 109.6 cm/sec MV dec time 0.17 sec Ao V2 max 124.9 cm/sec Ao max PG 6.2 mmHg Ao max PG (full) 3.1 mmHg SOTERO(V,A) 2.2 cm\S\2 SOTERO(V,D) 2.2 cm\S\2 LV V1 max PG 3.2 mmHg LV V1 max 88.8 cm/sec MR max konstantin 420.8 cm/sec MR max PG 70.8 mmHg MR mean konstantin 327.9 cm/sec MR mean PG 47.1 mmHg MR VTI 110.8 cm PA V2 max 119.4 cm/sec PA max PG 5.7 mmHg PA acc slope 684.5 cm/sec\S\2 PA acc time 0.11 sec PI max konstantin 195.5 cm/sec PI max PG 15.3 mmHg PI dec slope 175.0 cm/sec\S\2 PI P1/2t 327.2 msec TR max konstantin 239.6 cm/sec PA pr(Accel) 28.3 mmHg
[2016-06-26] MEDS ORDERED: NURSING VERBAL MED ORDER ONE (17:00)
--- NOTE | 2016-06-26 19:03 | DIAGNOSTIC IMAGING REPORT ---
ABDOMINAL ULTRASOUND, RIGHT UPPER QUADRANT HISTORY: Elevated bilirubin. COMPARISON: CT of the abdomen and pelvis March 27, 2012 and right upper quadrant ultrasound April 03, 2012 FINDINGS: Hepatic echogenicity is mildly increased. No hepatic lesions are identified. There is no biliary ductal dilatation. The pancreas is obscured by overlying bowel gas. There are numerous gallstones within the gallbladder. There is no gallbladder wall thickening. There is no pericholecystic fluid. There is no right hydronephrosis. IMPRESSION: 1. Cholelithiasis. No gallbladder wall thickening. 2. No biliary ductal dilatation. 3. Obscured pancreas due to overlying bowel gas. 4. Suspected fatty liver. Electronically signed by: Blair Pyle M.D. 06/26/2016 7:02 PM Dictated Date/Time: 06/26/2016 7:01 PM
--- NOTE | 2016-06-26 20:03 | Progress Note ---
Medicine Progress Note Date & Time of Visit: Jun 26, 2016 at 19:52. Subjective patient seen resting in bed, with daughter at bedside states he feels improved compared to last night breathing is improving, less cough denies chest pain, palpitations, dizziness, nausea no tremors, hallucinations no other symptoms Objective Last 8 Hrs Date Time Temp Pulse Resp B/P Pulse Ox O2 Delivery O2 Flow Rate FiO2 06/26/16 19:34 36.8 92 16 143/77 91 Nasal Cannula 2.0 06/26/16 16:06 37.1 74 18 115/62 95 Nasal Cannula 2.0 06/26/16 16:00 Nasal Cannula 4.0 06/26/16 15:56 72 18 96 Nasal Cannula 2.0 06/26/16 12:00 Nasal Cannula 4.0 Physical Exam: General- oriented x 3, not in distress, speaks in sentences with no effort Head- atraumatic Eyes-EOMI, anicteric ENT- oropharynx clear Neck- supple, (+) mild JVD, no adenopathy, no thyromegaly; no bruits appreciated Lungs- (+) mild scattered wheezing bilaterally, no rales Heart-normal rate,irregularly irregular rhythm; no murmur Abdomen- normal bowel sounds, soft, nontender, no masses Extremities- mild lower leg edema, no calf tenderness; peripheral pulses intact Neuro- alert, oriented x 3; no gross focal deficits Skin- warm & dry Laboratory Results: Last 24 Hours Test 06/26/16 02:20 06/26/16 02:50 06/26/16 06:34 06/26/16 08:35 White Blood Count 11.21 K/uL Red Blood Count 3.44 M/uL Hemoglobin 11.3 g/dL Hematocrit 34.4 % Mean Corpuscular Volume 100.0 fL Mean Corpuscular Hemoglobin 32.8 pg Mean Corpuscular Hemoglobin Concent 32.8 g/dl Platelet Count 222 K/uL Mean Platelet Volume 10.3 fL Neutrophils (%) (Auto) 84.2 % Lymphocytes (%) (Auto) 8.7 % Monocytes (%) (Auto) 5.7 % Eosinophils (%) (Auto) 0.8 % Basophils (%) (Auto) 0.3 % Neutrophils # (Auto) 9.45 K/uL Lymphocytes # (Auto) 0.97 K/uL Monocytes # (Auto) 0.64 K/uL Eosinophils # (Auto) 0.09 K/uL Basophils # (Auto) 0.03 K/uL RDW Standard Deviation 60.2 fL RDW Coefficient of Variation 16.5 % Immature Granulocyte % (Auto) 0.3 % Immature Granulocyte # (Auto) 0.03 K/uL Sodium Level 140 mmol/L Potassium Level 4.0 mmol/L Chloride Level 105 mmol/L Carbon Dioxide Level 31 mmol/L Anion Gap 4.0 mmol/L Blood Urea Nitrogen 37 mg/dl Creatinine 1.20 mg/dl Est Creatinine Clear Calc Drug Dose 45.4 ml/min Estimated GFR () 61.8 Estimated GFR (Non- 53.3 BUN/Creatinine Ratio 30.6 Random Glucose 145 mg/dl Calcium Level 9.0 mg/dl Total Bilirubin 2.3 mg/dl Aspartate Amino Transf (AST/SGOT) 50 U/L Alanine Aminotransferase (ALT/SGPT) 58 U/L Alkaline Phosphatase 115 U/L Total Protein 8.1 gm/dl Albumin 4.1 gm/dl Globulin 4.0 gm/dl Albumin/Globulin Ratio 1.0 Urine Color YELLOW Urine Appearance CLEAR Urine pH 5.0 Urine Specific [place] 1.014 Urine Protein NEG Urine Glucose (UA) NEG Urine Ketones TRACE Urine Occult Blood NEG Urine Nitrite NEG Urine Bilirubin NEG Urine Urobilinogen NEG Urine Leukocyte Esterase NEG Bedside Glucose 109 mg/dl Prothrombin Time 12.6 SECONDS Prothromb Time International Ratio 1.2 Test 06/26/16 11:03 06/26/16 16:16 Bedside Glucose 135 mg/dl 179 mg/dl Date/Time Source Procedure Growth Status 06/26/16 02:06 Blood Blood Culture Pending Received 06/26/16 02:00 Blood Blood Culture Pending Received 06/26/16 05:25 Sputum Expectorated Sputum Gram Stain - Final Resulted 06/26/16 05:25 Sputum Expectorated Sputum Sputum Culture Pending Resulted Assessment & Plan 89 year old male with history of DM 2, HTN, CKD 3, BPH, A Fib presenting with cough, shortness of breath. Acute hypoxic respiratory failure, likely from Aspiration Pneumonitis possible Acute Exacerbation of Underlying COPD -- CXR: no signs of pneumonia -- ff up cultures -- improving but still has wheezing add Prednisone 40mg po daily change antibiotics to Augmentin PO Nebs Speech Therapy eval Worsening Lower Leg Edema - r/o CHF * -- Conclusions -- * The left ventricle is normal in size. * Left ventricular systolic function is normal. * Ejection Fraction = 55-60%. * The right ventricular systolic function is normal. * There is mild mitral regurgitation. * There is mild tricuspid regurgitation. 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 oral anti-coagulation due to falls and alcohol use Continue Metoprolol CKD III: stable Hypertension: Stable continue lisinopril, BB, HCTZ Diabetes Type II: Diet controlled ISS, Accu checks Essential Tremors: continue primidone Neuropathy: Likely Diabetic neuropathy Continue gabapentin DVT Px: SQ heparin Code Status: Full code Dispo pending needs PT/OT eval Current Inpatient Medications: Current Inpatient Medications Medications (Trade) Dose Ordered Sig/Prema Route Start Time Stop Time Status Last Admin Dose Admin Acetaminophen (Tylenol Tab) 650 mg Q4H PRN PO 06/26/16 04:00 07/26/16 03:59 Ondansetron HCl (Zofran Inj) 4 mg Q6H PRN IV 06/26/16 04:00 07/26/16 03:59 Albuterol/ Ipratropium (Duoneb) 3 ml QIDR INH 06/26/16 08:00 07/26/16 07:59 06/26/16 15:56 3 ML Allopurinol (Zyloprim Tab) 300 mg QAM PO 06/26/16 09:00 07/26/16 08:59 06/26/16 08:27 300 MG Hydrochlorothiazide (Hydrochlorothiazide Tab) 12.5 mg QAM PO 06/26/16 09:00 07/26/16 08:59 06/26/16 08:27 12.5 MG Lisinopril (Zestril Tab) 5 mg DAILY PO 06/26/16 09:00 07/26/16 08:59 06/26/16 08:26 5 MG Metoprolol Tartrate (Lopressor Tab) 50 mg BID PO 06/26/16 09:00 07/26/16 08:59 06/26/16 08:28 50 MG Primidone (Mysoline Tab) 100 mg BID PO 06/26/16 09:00 07/26/16 08:59 06/26/16 08:25 100 MG Insulin Aspart (novoLOG ASPART) SLIDING SCALE If C... ACHS SC 06/26/16 08:00 07/26/16 07:59 06/26/16 12:42 1 UNITS Glucose (Glucose 40% Gel) 15-30 GRAMS 15 GRAMS... UD PRN PO 06/26/16 05:00 07/26/16 04:59 Glucose (Glucose Chew Tab) 4-8 Tablets 4 Tabl... UD PRN PO 06/26/16 05:00 07/26/16 04:59 Dextrose (Dextrose 50% 50ML Syringe) 25-50ML OF 50% DW IV FOR... UD PRN IV 06/26/16 05:00 07/26/16 04:59 Glucagon (Glucagon Inj) 1 mg UD PRN SQ 06/26/16 05:00 07/26/16 04:59 Heparin Sodium (Porcine) (Heparin Sq 5000 Unit/0.5ml) 5,000 unit Q12 SQ 06/26/16 21:00 07/26/16 20:59 Thiamine HCl (Vitamin B-1 Tab) 100 mg DAILY PO 06/26/16 12:15 07/26/16 12:14 06/26/16 12:43 100 MG Lorazepam (Ativan Tab) 1 mg ONE PRN PO 06/26/16 11:45 07/26/16 11:44 Amoxicillin/ Clavulanate Potassium (Augmentin Tab) 875 mg BIDM PO 06/26/16 12:15 07/03/16 12:14 06/26/16 16:45 875 MG Prednisone (PredniSONE TAB) 40 mg DAILY PO 06/27/16 09:00 07/27/16 08:59 Polyethylene (Miralax Powder Packet) 17 gm QAM PO 06/27/16 09:00 07/27/16 08:59
[2016-06-26] MEDS: HEPARIN SOD 5000 UNIT/0.5 ML CARP SQ SCH (20:47)
[2016-06-27] VITALS (9 sets, daily range): BP systolic 99–121; BP diastolic 59–79; PULSE 60–105; TEMP 36.3–36.8; O2SAT 93–100
[2016-06-27 06:10] LABS: BASO % 0.1 %; BASO ABS # 0.01 K/uL (0-0.2); COMPLETE YES; EOS % 0.3 %; HEMATOCRIT 29.8 % (42-52); IG% 0.5 %; LYMPH % 8.9 %; LYMPH ABS # 0.71 K/uL (1.2-3.4); MEAN CELL VOLUME 99.3 fL (80-100); MEAN CORPUSCULAR HEMOGLOBIN 32.3 pg (25-34); MEAN CORPUSCULAR HGB CONC 32.6 g/dl (32-36); MEAN PLATELET VOLUME 11.2 fL (7.4-10.4); MONO % 6.2 %; PLATELET COUNT 209 K/uL (130-400); WHITE BLOOD COUNT 7.96 K/uL (4.8-10.8)
[2016-06-27 06:39] LABS: BUN/CREATININE RATIO 33.1 (10-20); CALCIUM 8.6 mg/dl (8.5-10.1); CREATININE 1.5 mg/dl (0.60-1.40); POTASSIUM 3.6 mmol/L (3.5-5.1)
[2016-06-27] MEDS: ALBUT/IPRATROP 3MG/0.5MG NEB 3 ML VIAL INH SCH (07:05)
[2016-06-27] MEDS: LISINOPRIL 5 MG TAB PO SCH (08:06)
[2016-06-27] MEDS: AMOXICILLIN/CLAVULANATE TAB 875 MG TAB PO SCH ×2 (08:07→17:49)
[2016-06-27] MEDS: METOPROLOL TARTRATE 50 MG TAB PO SCH ×2 (08:07→20:36)
[2016-06-27] MEDS: THIAMINE HCL 100 MG TAB PO SCH (08:07)
[2016-06-27] MEDS: POLYETHYLENE (MIRALAX) 17 GM PACK PO SCH (08:07)
[2016-06-27] MEDS: PRIMIDONE 50 MG TAB PO SCH ×2 (08:08→20:35)
[2016-06-27] MEDS: ALLOPURINOL 300 MG TAB PO SCH (08:08)
[2016-06-27] MEDS: HEPARIN SOD 5000 UNIT/0.5 ML CARP SQ SCH ×2 (08:09→20:42)
[2016-06-27] MEDS: INSULIN ASPART 100 UNITS/ML 3 ML PEN SC SCH ×4 (08:16→20:37)
[2016-06-27] MEDS: HYDROCHLOROTHIAZIDE 25 MG TAB PO SCH (08:17)
--- NOTE | 2016-06-27 08:56 | DIAGNOSTIC IMAGING REPORT ---
CHEST ONE VIEW PORTABLE HISTORY: Aspiration pneumonia. Follow-up. COMPARISON: Chest 06/26/2016. FINDINGS: The heart remains enlarged. Mild diffuse interstitial thickening persists. No pneumothorax. Patchy densities at the right lung base. No evidence for pulmonary edema. Trace right pleural effusion. IMPRESSION: 1. Patchy densities at the right lung base. This may represent a pneumonia secondary to aspiration. 2. Cardiomegaly and diffuse interstitial thickening persists. Electronically signed by: Dar Vasquez M.D. 06/27/2016 8:55 AM Dictated Date/Time: 06/27/2016 8:53 AM
[2016-06-27] MEDS ORDERED: BISACODYL 10 MG SUPP PR PRN (12:15)
[2016-06-27] MEDS ORDERED: DOCUSATE SODIUM/SENNA 50/8.6MG TAB PO PRN (12:15)
--- NOTE | 2016-06-27 12:21 | Progress Note ---
Medicine Progress Note Date & Time of Visit: Jun 27, 2016 at 12:11. Subjective patient states he feels improved today coughing and dyspnea is less no chest pain, palpitations, dizziness (+) constipation but no abdominal pain, nausea no tremors, hallucinations, diaphoresis denies other symptoms Objective Last 8 Hrs Date Time Temp Pulse Resp B/P Pulse Ox O2 Delivery O2 Flow Rate FiO2 06/27/16 11:20 36.5 69 18 99/59 98 3.0 06/27/16 08:00 Nasal Cannula 2.0 06/27/16 07:29 36.6 68 16 121/65 100 3.0 06/27/16 07:05 71 18 93 Nasal Cannula 2.0 Physical Exam: General- oriented x 3, not in distress, speaks in sentences with no effort Eyes- anicteric ENT- oropharynx clear Neck- supple,no JVD Lungs- (+) mild occasional rhonchi bilaterally, no wheezing Heart-normal rate,irregularly irregular rhythm; no murmur Abdomen- normal bowel sounds, soft, nontender Extremities- mild lower leg edema, no calf tenderness Neuro- alert, oriented x 3; no gross focal deficits Skin- warm & dry Laboratory Results: Last 24 Hours Test 06/26/16 16:16 06/26/16 20:31 06/27/16 05:50 06/27/16 06:41 Bedside Glucose 179 mg/dl 275 mg/dl 138 mg/dl White Blood Count 7.96 K/uL Red Blood Count 3.00 M/uL Hemoglobin 9.7 g/dL Hematocrit 29.8 % Mean Corpuscular Volume 99.3 fL Mean Corpuscular Hemoglobin 32.3 pg Mean Corpuscular Hemoglobin Concent 32.6 g/dl Platelet Count 209 K/uL Mean Platelet Volume 11.2 fL Neutrophils (%) (Auto) 84.0 % Lymphocytes (%) (Auto) 8.9 % Monocytes (%) (Auto) 6.2 % Eosinophils (%) (Auto) 0.3 % Basophils (%) (Auto) 0.1 % Neutrophils # (Auto) 6.69 K/uL Lymphocytes # (Auto) 0.71 K/uL Monocytes # (Auto) 0.49 K/uL Eosinophils # (Auto) 0.02 K/uL Basophils # (Auto) 0.01 K/uL RDW Standard Deviation 58.5 fL RDW Coefficient of Variation 16.1 % Immature Granulocyte % (Auto) 0.5 % Immature Granulocyte # (Auto) 0.04 K/uL Sodium Level 138 mmol/L Potassium Level 3.6 mmol/L Chloride Level 100 mmol/L Carbon Dioxide Level 30 mmol/L Anion Gap 8.0 mmol/L Blood Urea Nitrogen 50 mg/dl Creatinine 1.50 mg/dl Est Creatinine Clear Calc Drug Dose 36.1 ml/min Estimated GFR () 47.2 Estimated GFR (Non- 40.7 BUN/Creatinine Ratio 33.1 Random Glucose 126 mg/dl Calcium Level 8.6 mg/dl Total Bilirubin 1.3 mg/dl Direct Bilirubin 0.4 mg/dl Aspartate Amino Transf (AST/SGOT) 23 U/L Alanine Aminotransferase (ALT/SGPT) 40 U/L Alkaline Phosphatase 87 U/L Total Protein 7.3 gm/dl Albumin 3.5 gm/dl Test 06/27/16 11:09 Bedside Glucose 198 mg/dl Assessment & Plan 89 year old male with history of DM 2, HTN, CKD 3, BPH, A Fib presenting with cough, shortness of breath. Acute hypoxic respiratory failure, likely from Aspiration Pneumonitis possible Acute Exacerbation of Underlying COPD -- repeat CXR: (+) right lower lobe infiltrate -- blood and sputum cultures negative so far -- still on 2-3 L NC continue Augmentin, Bronchidilators, Prednisone Worsening Lower Leg Edema - CHF ruled out * -- Conclusions -- * The left ventricle is normal in size. * Left ventricular systolic function is normal. * Ejection Fraction = 55-60%. * The right ventricular systolic function is normal. * There is mild mitral regurgitation. * There is mild tricuspid regurgitation. - Lasix IV ordered with good diuresis - hold diuretics for now due to elevated crea resume HCTZ tomorrow if crea improved Alcoholism - already on Gabapentin - PO Ativan PRN as per alcohol withdrawal protocol - no signs of withdrawal Atrial Fibrillation rate controlled Not a good candidate for senior living oral anti-coagulation due to falls and alcohol use Continue Metoprolol CKD III: crea slightly increased to 1.5 from 1.2 hold diuretics and Lisinopril monitor Hypertension: Stable hold Lisinopril, HCTZ continue Metoprolol Diabetes Type II: Diet controlled ISS, Accu checks Essential Tremors: continue primidone Neuropathy: Likely Diabetic neuropathy Continue gabapentin DVT Px: SQ heparin Code Status: Full code Dispo pending needs PT/OT eval Current Inpatient Medications: Current Inpatient Medications Medications (Trade) Dose Ordered Sig/Prema Route Start Time Stop Time Status Last Admin Dose Admin Acetaminophen (Tylenol Tab) 650 mg Q4H PRN PO 06/26/16 04:00 07/26/16 03:59 Ondansetron HCl (Zofran Inj) 4 mg Q6H PRN IV 06/26/16 04:00 07/26/16 03:59 Allopurinol (Zyloprim Tab) 300 mg QAM PO 06/26/16 09:00 07/26/16 08:59 06/27/16 08:08 300 MG Hydrochlorothiazide (Hydrochlorothiazide Tab) 12.5 mg QAM PO 06/26/16 09:00 07/26/16 08:59 06/27/16 08:17 12.5 MG Lisinopril (Zestril Tab) 5 mg DAILY PO 06/26/16 09:00 07/26/16 08:59 06/27/16 08:06 5 MG Metoprolol Tartrate (Lopressor Tab) 50 mg BID PO 06/26/16 09:00 07/26/16 08:59 06/27/16 08:07 50 MG Primidone (Mysoline Tab) 100 mg BID PO 06/26/16 09:00 07/26/16 08:59 06/27/16 08:08 100 MG Insulin Aspart (novoLOG ASPART) SLIDING SCALE If C... ACHS SC 06/26/16 08:00 07/26/16 07:59 06/27/16 08:16 1 UNITS Glucose (Glucose 40% Gel) 15-30 GRAMS 15 GRAMS... UD PRN PO 06/26/16 05:00 07/26/16 04:59 Glucose (Glucose Chew Tab) 4-8 Tablets 4 Tabl... UD PRN PO 06/26/16 05:00 07/26/16 04:59 Dextrose (Dextrose 50% 50ML Syringe) 25-50ML OF 50% DW IV FOR... UD PRN IV 06/26/16 05:00 07/26/16 04:59 Glucagon (Glucagon Inj) 1 mg UD PRN SQ 06/26/16 05:00 07/26/16 04:59 Heparin Sodium (Porcine) (Heparin Sq 5000 Unit/0.5ml) 5,000 unit Q12 SQ 06/26/16 21:00 07/26/16 20:59 06/27/16 08:09 5,000 UNIT Thiamine HCl (Vitamin B-1 Tab) 100 mg DAILY PO 06/26/16 12:15 07/26/16 12:14 06/27/16 08:07 100 MG Lorazepam (Ativan Tab) 1 mg ONE PRN PO 06/26/16 11:45 07/26/16 11:44 Amoxicillin/ Clavulanate Potassium (Augmentin Tab) 875 mg BIDM PO 06/26/16 12:15 07/03/16 12:14 06/27/16 08:07 875 MG Prednisone (PredniSONE TAB) 40 mg DAILY PO 06/27/16 09:00 07/27/16 08:59 06/27/16 08:08 40 MG Polyethylene (Miralax Powder Packet) 17 gm QAM PO 06/27/16 09:00 07/27/16 08:59 06/27/16 08:07 17 GM Albuterol/ Ipratropium (Combivent Respimat Inh) 2 puffs QID INH 06/27/16 13:00 07/27/16 12:59
[2016-06-27] MEDS: IPRATROPIUM BROMIDE/ALBUTEROL respimat INH INH SCH ×3 (12:23→20:37)
[2016-06-27] MEDS ORDERED: DOCUSATE SODIUM/SENNA 50/8.6MG TAB PO ONE (12:30)
[2016-06-28] VITALS (8 sets, daily range): BP systolic 102–147; BP diastolic 60–86; PULSE 55–127; TEMP 36.5–37; O2SAT 93–98
[2016-06-28] MEDS ORDERED: LEVOFLOXACIN / D5W 750 MG in PREMIXED IN D5W 150 ML IV SCH (04:00)
[2016-06-28 06:04] LABS: BASO % 0.5 %; BASO ABS # 0.04 K/uL (0-0.2); COMPLETE YES; EOS % 1.3 %; HEMATOCRIT 31.4 % (42-52); IG% 0.5 %; LYMPH % 19.1 %; LYMPH ABS # 1.65 K/uL (1.2-3.4); MEAN CELL VOLUME 99.7 fL (80-100); MEAN CORPUSCULAR HEMOGLOBIN 32.4 pg (25-34); MEAN CORPUSCULAR HGB CONC 32.5 g/dl (32-36); MEAN PLATELET VOLUME 11.4 fL (7.4-10.4); MONO % 7.7 %; NEUT % 70.9 %; PLATELET COUNT 227 K/uL (130-400); RED BLOOD COUNT 3.15 M/uL (4.7-6.1); WHITE BLOOD COUNT 8.62 K/uL (4.8-10.8)
[2016-06-28 06:34] LABS: BUN/CREATININE RATIO 42.1 (10-20); CALCIUM 8.6 mg/dl (8.5-10.1); CREATININE 1.4 mg/dl (0.60-1.40); POTASSIUM 3.4 mmol/L (3.5-5.1)
[2016-06-28] MEDS: INSULIN ASPART 100 UNITS/ML 3 ML PEN SC SCH ×4 (07:00→20:25)
[2016-06-28] MEDS: AMOXICILLIN/CLAVULANATE TAB 875 MG TAB PO SCH ×2 (09:00→17:28)
[2016-06-28] MEDS: PRIMIDONE 50 MG TAB PO SCH ×2 (09:01→20:30)
[2016-06-28] MEDS: THIAMINE HCL 100 MG TAB PO SCH (09:01)
[2016-06-28] MEDS: IPRATROPIUM BROMIDE/ALBUTEROL respimat INH INH SCH ×4 (09:02→20:28)
[2016-06-28] MEDS: POLYETHYLENE (MIRALAX) 17 GM PACK PO SCH (09:02)
[2016-06-28] MEDS: METOPROLOL TARTRATE 50 MG TAB PO SCH (09:02)
[2016-06-28] MEDS: ALLOPURINOL 300 MG TAB PO SCH (09:04)
[2016-06-28] MEDS: HEPARIN SOD 5000 UNIT/0.5 ML CARP SQ SCH ×2 (09:08→20:32)
--- NOTE | 2016-06-28 11:52 | Progress Note ---
Medicine Progress Note Date & Time of Visit: Jun 28, 2016 at 11:47. Subjective patient seen resting in bed breathing is about the same as yesterday had some wheezing last night less cough, brown sputum denies chest pain, palpitations, dizziness, nausea no other symptoms Objective Last 8 Hrs Date Time Temp Pulse Resp B/P Pulse Ox O2 Delivery O2 Flow Rate FiO2 06/28/16 11:27 36.5 57 18 103/60 97 3.0 06/28/16 08:00 Nasal Cannula 2.0 06/28/16 07:36 36.6 62 18 109/63 98 3.0 06/28/16 04:00 93 Nasal Cannula 2.0 06/28/16 03:56 36.6 55 19 102/61 98 Nasal Cannula 2.0 Physical Exam: General- oriented x 3, not in distress, speaks in sentences with no effort Neck- no JVD Lungs- (+) mild expiratory wheeze bilaterally, mild rales on the right base Heart-normal rate,irregularly irregular rhythm; no murmur Abdomen- normal bowel sounds, soft, nontender Extremities- mild lower leg edema, no calf tenderness Neuro- alert, oriented x 3; no gross focal deficits Skin- warm & dry Laboratory Results: Last 24 Hours Test 06/27/16 15:56 06/27/16 20:18 06/28/16 05:19 06/28/16 06:48 Bedside Glucose 208 mg/dl 156 mg/dl 119 mg/dl White Blood Count 8.62 K/uL Red Blood Count 3.15 M/uL Hemoglobin 10.2 g/dL Hematocrit 31.4 % Mean Corpuscular Volume 99.7 fL Mean Corpuscular Hemoglobin 32.4 pg Mean Corpuscular Hemoglobin Concent 32.5 g/dl Platelet Count 227 K/uL Mean Platelet Volume 11.4 fL Neutrophils (%) (Auto) 70.9 % Lymphocytes (%) (Auto) 19.1 % Monocytes (%) (Auto) 7.7 % Eosinophils (%) (Auto) 1.3 % Basophils (%) (Auto) 0.5 % Neutrophils # (Auto) 6.12 K/uL Lymphocytes # (Auto) 1.65 K/uL Monocytes # (Auto) 0.66 K/uL Eosinophils # (Auto) 0.11 K/uL Basophils # (Auto) 0.04 K/uL RDW Standard Deviation 59.0 fL RDW Coefficient of Variation 16.3 % Immature Granulocyte % (Auto) 0.5 % Immature Granulocyte # (Auto) 0.04 K/uL Sodium Level 140 mmol/L Potassium Level 3.4 mmol/L Chloride Level 103 mmol/L Carbon Dioxide Level 32 mmol/L Anion Gap 5.0 mmol/L Blood Urea Nitrogen 59 mg/dl Creatinine 1.40 mg/dl Est Creatinine Clear Calc Drug Dose 38.7 ml/min Estimated GFR () 51.3 Estimated GFR (Non- 44.2 BUN/Creatinine Ratio 42.1 Random Glucose 105 mg/dl Calcium Level 8.6 mg/dl Total Bilirubin 1.0 mg/dl Direct Bilirubin 0.4 mg/dl Aspartate Amino Transf (AST/SGOT) 21 U/L Alanine Aminotransferase (ALT/SGPT) 35 U/L Alkaline Phosphatase 85 U/L Total Protein 7.4 gm/dl Albumin 3.6 gm/dl Test 06/28/16 11:22 Bedside Glucose 173 mg/dl Assessment & Plan 89 year old male with history of DM 2, HTN, CKD 3, BPH, A Fib presenting with cough, shortness of breath. Acute hypoxic respiratory failure, likely from Aspiration Pneumonitis possible Acute Exacerbation of Underlying COPD -- repeat CXR: (+) right lower lobe infiltrate -- blood and sputum cultures negative so far -- still on 2-3 L NC still has some wheeze today add Symbicor continue Augmentin,Combivent, Prednisone Lower Leg Edema - CHF ruled out * -- Conclusions -- * The left ventricle is normal in size. * Left ventricular systolic function is normal. * Ejection Fraction = 55-60%. * The right ventricular systolic function is normal. * There is mild mitral regurgitation. * There is mild tricuspid regurgitation. - Lasix IV ordered with good diuresis - resume HCTZ Alcoholism - already on Gabapentin - PO Ativan PRN as per alcohol withdrawal protocol - no signs of withdrawal Atrial Fibrillation rate controlled Not a good candidate for mcc oral anti-coagulation due to falls and alcohol use Continue Metoprolol CKD III: crea back to 1.4 resume HCTZ Hypertension: resume HCTZ hold Lisinopril as bp on the low side decrease Metoprolol to 25mg BID Diabetes Type II: Diet controlled ISS, Accu checks Essential Tremors: continue primidone Neuropathy: Likely Diabetic neuropathy Continue gabapentin DVT Px: SQ heparin Code Status: Full code Dispo pending needs PT/OT eval Current Inpatient Medications: Current Inpatient Medications Medications (Trade) Dose Ordered Sig/Prema Route Start Time Stop Time Status Last Admin Dose Admin Acetaminophen (Tylenol Tab) 650 mg Q4H PRN PO 06/26/16 04:00 07/26/16 03:59 Ondansetron HCl (Zofran Inj) 4 mg Q6H PRN IV 06/26/16 04:00 07/26/16 03:59 Allopurinol (Zyloprim Tab) 300 mg QAM PO 06/26/16 09:00 07/26/16 08:59 06/28/16 09:04 300 MG Metoprolol Tartrate (Lopressor Tab) 50 mg BID PO 06/26/16 09:00 07/26/16 08:59 06/28/16 09:02 50 MG Primidone (Mysoline Tab) 100 mg BID PO 06/26/16 09:00 07/26/16 08:59 06/28/16 09:01 100 MG Insulin Aspart (novoLOG ASPART) SLIDING SCALE If C... ACHS SC 06/26/16 08:00 07/26/16 07:59 06/27/16 17:49 4 UNITS Glucose (Glucose 40% Gel) 15-30 GRAMS 15 GRAMS... UD PRN PO 06/26/16 05:00 07/26/16 04:59 Glucose (Glucose Chew Tab) 4-8 Tablets 4 Tabl... UD PRN PO 06/26/16 05:00 07/26/16 04:59 Dextrose (Dextrose 50% 50ML Syringe) 25-50ML OF 50% DW IV FOR... UD PRN IV 06/26/16 05:00 07/26/16 04:59 Glucagon (Glucagon Inj) 1 mg UD PRN SQ 06/26/16 05:00 07/26/16 04:59 Heparin Sodium (Porcine) (Heparin Sq 5000 Unit/0.5ml) 5,000 unit Q12 SQ 06/26/16 21:00 07/26/16 20:59 06/28/16 09:08 5,000 UNIT Thiamine HCl (Vitamin B-1 Tab) 100 mg DAILY PO 06/26/16 12:15 07/26/16 12:14 06/28/16 09:01 100 MG Lorazepam (Ativan Tab) 1 mg ONE PRN PO 06/26/16 11:45 07/26/16 11:44 Amoxicillin/ Clavulanate Potassium (Augmentin Tab) 875 mg BIDM PO 06/26/16 12:15 07/03/16 12:14 06/28/16 09:00 875 MG Polyethylene (Miralax Powder Packet) 17 gm QAM PO 06/27/16 09:00 07/27/16 08:59 06/28/16 09:02 17 GM Albuterol/ Ipratropium (Combivent Respimat Inh) 2 puffs QID INH 06/27/16 13:00 07/27/16 12:59 06/28/16 09:02 2 PUFFS Senna/Docusate Sodium (Senokot S Tab) 1 tab DAILY PRN PO 06/27/16 12:15 07/27/16 12:14 06/28/16 09:01 1 TAB Bisacodyl (Dulcolax Supp) 10 mg DAILY PRN CO 06/27/16 12:15 07/27/16 12:14 Prednisone (PredniSONE TAB) 30 mg DAILY PO 06/28/16 09:00 07/28/16 08:59 06/28/16 09:01 30 MG Budesonide/ Formoterol Fumarate (Symbicort 160/ 4.5 Inh) 2 puffs BID INH 06/28/16 21:00 07/28/16 20:59 UNV Budesonide/ Formoterol Fumarate (Symbicort 160/ 4.5 Inh) 2 puffs 1143 ONCE INH 06/28/16 11:43 06/28/16 11:44 UNV Potassium Chloride (Klor-Con Tab) 40 meq ONE PO 06/28/16 11:45 07/28/16 11:44 UNV
[2016-06-28] MEDS ORDERED: BUDESONIDE/FORMOTEROL FUMARATE 160/4.5 60 PUFFS/INHALER INH ONE (12:15)
[2016-06-28] MEDS: POTASSIUM CHLORIDE 20 MEQ TABCR PO SCH (13:06)
[2016-06-28] MEDS: BUDESONIDE/FORMOTEROL FUMARATE 160/4.5 60 PUFFS/INHALER INH SCH (20:28)
[2016-06-28] MEDS: METOPROLOL TARTRATE 25 MG TAB PO SCH (20:29)
[2016-06-29] VITALS (7 sets, daily range): BP systolic 143–164; BP diastolic 84–92; PULSE 68–91; TEMP 36.6–37; O2SAT 93–96; Ht 172.7 cm; Wt 88.6 kg
[2016-06-29 06:01] LABS: BASO % 0.4 %; BASO ABS # 0.03 K/uL (0-0.2); COMPLETE YES; HEMATOCRIT 33.4 % (42-52); IG% 0.7 %; LYMPH % 23.5 %; MEAN CELL VOLUME 99.1 fL (80-100); MEAN CORPUSCULAR HGB CONC 32.3 g/dl (32-36); MEAN PLATELET VOLUME 11.2 fL (7.4-10.4); MONO % 6.2 %; NEUT % 68.2 %; PLATELET COUNT 236 K/uL (130-400); RED BLOOD COUNT 3.37 M/uL (4.7-6.1); WHITE BLOOD COUNT 7.22 K/uL (4.8-10.8)
[2016-06-29 06:36] LABS: BUN/CREATININE RATIO 41.5 (10-20); CALCIUM 8.8 mg/dl (8.5-10.1); CREATININE 1.1 mg/dl (0.60-1.40)
[2016-06-29] MEDS: INSULIN ASPART 100 UNITS/ML 3 ML PEN SC SCH ×2 (08:07→12:10)
[2016-06-29] MEDS: PRIMIDONE 50 MG TAB PO SCH (08:08)
[2016-06-29] MEDS: THIAMINE HCL 100 MG TAB PO SCH (08:08)
[2016-06-29] MEDS: ALLOPURINOL 300 MG TAB PO SCH (08:09)
[2016-06-29] MEDS: BUDESONIDE/FORMOTEROL FUMARATE 160/4.5 60 PUFFS/INHALER INH SCH (08:09)
[2016-06-29] MEDS: AMOXICILLIN/CLAVULANATE TAB 875 MG TAB PO SCH (08:10)
[2016-06-29] MEDS: IPRATROPIUM BROMIDE/ALBUTEROL respimat INH INH SCH ×2 (08:10→12:08)
[2016-06-29] MEDS: METOPROLOL TARTRATE 25 MG TAB PO SCH (08:11)
[2016-06-29] MEDS: POLYETHYLENE (MIRALAX) 17 GM PACK PO SCH (08:11)
[2016-06-29] MEDS: HEPARIN SOD 5000 UNIT/0.5 ML CARP SQ SCH (08:12)
[2016-06-29] MEDS: POTASSIUM CHLORIDE 20 MEQ TABCR PO SCH (12:08)
[2016-06-29] MEDS ORDERED: METOPROLOL TARTRATE 25 MG TAB PO ONE (13:00)
--- NOTE | 2016-06-29 13:24 | Progress Note ---
Medicine Progress Note Date & Time of Visit: June 29, 2016 at 13:16. Subjective seen in bedside chair, reading a book comfortable states he feels better overall denies shortness of breath, cough, sputum no chest pain, dizziness, palpitations no other symptoms states he is ready and would like to be discharged today Objective Last 8 Hrs Date Time Temp Pulse Resp B/P Pulse Ox O2 Delivery O2 Flow Rate FiO2 06/29/16 11:57 Room Air 06/29/16 11:02 37.0 75 22 164/92 94 Room Air 06/29/16 09:30 91 95 06/29/16 08:00 Room Air 06/29/16 07:19 36.7 72 20 151/84 94 Room Air Physical Exam: General- oriented x 3, not in distress, speaks in sentences with no effort Neck- no JVD Lungs- clear breath sounds bilaterally, no rales or wheezes Heart-normal rate,irregularly irregular rhythm; no murmur Abdomen- normal bowel sounds, soft, nontender Extremities- mild lower leg edema, no calf tenderness Neuro- alert, oriented x 3; no gross focal deficits Skin- warm & dry Laboratory Results: Last 24 Hours Test 06/28/16 16:04 06/28/16 20:00 06/29/16 05:27 06/29/16 06:43 Bedside Glucose 196 mg/dl 177 mg/dl 116 mg/dl White Blood Count 7.22 K/uL Red Blood Count 3.37 M/uL Hemoglobin 10.8 g/dL Hematocrit 33.4 % Mean Corpuscular Volume 99.1 fL Mean Corpuscular Hemoglobin 32.0 pg Mean Corpuscular Hemoglobin Concent 32.3 g/dl Platelet Count 236 K/uL Mean Platelet Volume 11.2 fL Neutrophils (%) (Auto) 68.2 % Lymphocytes (%) (Auto) 23.5 % Monocytes (%) (Auto) 6.2 % Eosinophils (%) (Auto) 1.0 % Basophils (%) (Auto) 0.4 % Neutrophils # (Auto) 4.92 K/uL Lymphocytes # (Auto) 1.70 K/uL Monocytes # (Auto) 0.45 K/uL Eosinophils # (Auto) 0.07 K/uL Basophils # (Auto) 0.03 K/uL RDW Standard Deviation 59.3 fL RDW Coefficient of Variation 16.3 % Immature Granulocyte % (Auto) 0.7 % Immature Granulocyte # (Auto) 0.05 K/uL Sodium Level 140 mmol/L Potassium Level 4.0 mmol/L Chloride Level 104 mmol/L Carbon Dioxide Level 30 mmol/L Anion Gap 6.0 mmol/L Blood Urea Nitrogen 46 mg/dl Creatinine 1.10 mg/dl Est Creatinine Clear Calc Drug Dose 49.2 ml/min Estimated GFR () 68.6 Estimated GFR (Non- 59.2 BUN/Creatinine Ratio 41.5 Random Glucose 109 mg/dl Calcium Level 8.8 mg/dl Total Bilirubin 1.0 mg/dl Direct Bilirubin 0.4 mg/dl Aspartate Amino Transf (AST/SGOT) 27 U/L Alanine Aminotransferase (ALT/SGPT) 43 U/L Alkaline Phosphatase 87 U/L Total Protein 7.6 gm/dl Albumin 3.7 gm/dl Test 06/29/16 11:16 Bedside Glucose 168 mg/dl Assessment & Plan 89 year old male with history of DM 2, HTN, CKD 3, BPH, A Fib presenting with cough, shortness of breath. Acute hypoxic respiratory failure, likely from Aspiration Pneumonitis possible Acute Exacerbation of Underlying COPD -- repeat CXR: (+) right lower lobe infiltrate -- blood and sputum cultures negative so far -- given Augmentin PO, Combivent, Prednisone -- was on 2 liters via nasal cannula, weaned off, now saturating > 90% on room air improved overall -- Speech Therapy eval: no signs of aspiration discharge plan: -- Augmentin x 3 more days to complete 7 days total continue Symbicort continue PRN Combivent -- ff up with PCP in 1 week home health services to be arranged PT/OT eval: ambulate with walker Lower Leg Edema - CHF ruled out - Echo: * The left ventricle is normal in size. * Left ventricular systolic function is normal. * Ejection Fraction = 55-60%. * The right ventricular systolic function is normal. * There is mild mitral regurgitation. * There is mild tricuspid regurgitation. - Lasix IV ordered with good diuresis - has mild lower leg edema continue HCTZ advised to elevated leg, 2g Na diet Alcoholism - already on Gabapentin - PO Ativan PRN as per alcohol withdrawal protocol - no signs of withdrawal during admission Atrial Fibrillation rate controlled Not a good candidate for assisted oral anti-coagulation due to falls and alcohol use Continue Metoprolol CKD III: crea stable Hypertension: resume usual BP medications Diabetes Type II: Diet controlled ISS, Accu checks Essential Tremors: continue primidone Neuropathy: Likely Diabetic neuropathy Continue gabapentin DVT Px: SQ heparin Code Status: Full code Dispo d/c home with home health services ff up with PCP in 1 week Current Inpatient Medications: Current Inpatient Medications Medications (Trade) Dose Ordered Sig/Prema Route Start Time Stop Time Status Last Admin Dose Admin Acetaminophen (Tylenol Tab) 650 mg Q4H PRN PO 06/26/16 04:00 07/26/16 03:59 Ondansetron HCl (Zofran Inj) 4 mg Q6H PRN IV 06/26/16 04:00 07/26/16 03:59 Allopurinol (Zyloprim Tab) 300 mg QAM PO 06/26/16 09:00 07/26/16 08:59 06/29/16 08:09 300 MG Primidone (Mysoline Tab) 100 mg BID PO 06/26/16 09:00 07/26/16 08:59 06/29/16 08:08 100 MG Insulin Aspart (novoLOG ASPART) SLIDING SCALE If C... ACHS SC 06/26/16 08:00 07/26/16 07:59 06/29/16 12:10 1 UNITS Glucose (Glucose 40% Gel) 15-30 GRAMS 15 GRAMS... UD PRN PO 06/26/16 05:00 07/26/16 04:59 Glucose (Glucose Chew Tab) 4-8 Tablets 4 Tabl... UD PRN PO 06/26/16 05:00 07/26/16 04:59 Dextrose (Dextrose 50% 50ML Syringe) 25-50ML OF 50% DW IV FOR... UD PRN IV 06/26/16 05:00 07/26/16 04:59 Glucagon (Glucagon Inj) 1 mg UD PRN SQ 06/26/16 05:00 07/26/16 04:59 Heparin Sodium (Porcine) (Heparin Sq 5000 Unit/0.5ml) 5,000 unit Q12 SQ 06/26/16 21:00 07/26/16 20:59 06/29/16 08:12 5,000 UNIT Thiamine HCl (Vitamin B-1 Tab) 100 mg DAILY PO 06/26/16 12:15 07/26/16 12:14 06/29/16 08:08 100 MG Lorazepam (Ativan Tab) 1 mg ONE PRN PO 06/26/16 11:45 07/26/16 11:44 Amoxicillin/ Clavulanate Potassium (Augmentin Tab) 875 mg BIDM PO 06/26/16 12:15 07/03/16 12:14 06/29/16 08:10 875 MG Polyethylene (Miralax Powder Packet) 17 gm QAM PO 06/27/16 09:00 07/27/16 08:59 06/28/16 09:02 17 GM Albuterol/ Ipratropium (Combivent Respimat Inh) 2 puffs QID INH 06/27/16 13:00 07/27/16 12:59 06/29/16 12:08 2 PUFFS Senna/Docusate Sodium (Senokot S Tab) 1 tab DAILY PRN PO 06/27/16 12:15 07/27/16 12:14 06/28/16 09:01 1 TAB Bisacodyl (Dulcolax Supp) 10 mg DAILY PRN LA 06/27/16 12:15 07/27/16 12:14 Prednisone (PredniSONE TAB) 30 mg DAILY PO 06/28/16 09:00 07/28/16 08:59 06/29/16 08:09 30 MG Budesonide/ Formoterol Fumarate (Symbicort 160/ 4.5 Inh) 2 puffs BID INH 06/28/16 21:00 07/28/16 20:59 06/29/16 08:09 2 PUFFS Potassium Chloride (Klor-Con Tab) 40 meq 1215 PO 06/28/16 12:15 07/28/16 12:14 06/29/16 12:08 40 MEQ Metoprolol Tartrate (Lopressor Tab) 25 mg BID PO 06/28/16 21:00 07/28/16 20:59 06/29/16 08:11 25 MG
[2016-06-29] MEDS ORDERED: SYMIN INH ×2 (13:29→14:19)
[2016-06-29] MEDS ORDERED: AMOX1TAB43 PO (13:29)
[2016-06-29] MEDS ORDERED: NRN600 PO (13:29)
[2016-06-29] MEDS ORDERED: IPRA1AER2 INH ×2 (13:29→14:18)
[2016-06-29] MEDS ORDERED: HYDROCHLOROTHIAZIDE 25 MG TAB PO ONE (13:30)
--- NOTE | 2016-06-29 13:34 | Discharge Instructions ---
Discharge Instructions Date of Service June 29, 2016. Admission Reason for Admission: Aspiration Pneumonia Discharge Discharge Diagnosis / Problem: ASPIRATION PNEUMONIA Discharge Goals Goal(s): Diagnostic testing, Therapeutic intervention Activity Recommendations Activity Limitations: as noted below (NO HEAVY EXERTION UNTIL RE-EVALUATED BY PRIMARY CARE PHYSICIAN.) . Instructions / Follow-Up Instructions / Follow-Up PLEASE REVIEW YOUR NEW MEDICATION LIST AND FOLLOW INSTRUCTIONS CAREFULLY. GABAPENTIN DOSE HAS BEEN DECREASED AND ADJUSTED ACCORDING TO YOUR KIDNEY FUNCTION. ALWAYS ELEVATE YOUR LEGS. CALL PRIMARY CARE PHYSICIAN OR RETURN TO ER IMMEDIATELY IF WITH RECURRENCE OF SYMPTOMS, INCREASING COUGH, SPUTUM, SHORTNESS OF BREATH, FEVER/CHILLS, WEAKNESS, LEG SWELLING. ALWAYS BE CAREFUL AND USE A WALKER WHEN AMBULATING. FOLLOW UP WITH DR. NIEVES ON WEDNESDAY JULY 06, 2016 AT 12:45PM. Current Hospital Diet Patient's current hospital diet: Diabetes Type 2 Diet Discharge Diet Recommended Diet: AHA Diet (Heart Healthy), Diabetes Type 2 Diet Pending Studies Studies pending at discharge: no Laboratory Results Hemoglobin A1c Test 04/07/16 04:43 Range/Units Estimated Average Glucose 128 mg/dl Hemoglobin A1c 6.1 H 4.5-5.6 % Medical Emergencies . Who to Call and When: Medical Emergencies: If at any time you feel your situation is an emergency, please call 911 immediately. . Non-Emergent Contact Non-Emergency issues call your: Primary Care Provider Call Non-Emergent contact if: you have a fever, you have any medication questions . Past History Medical & Surgical History: (1) Aspiration pneumonia (2) DM2 (diabetes mellitus, type 2) (3) CKD (chronic kidney disease), stage III (4) HTN (hypertension) (5) BPH (benign prostatic hypertrophy) (6) Diabetic neuropathy (7) Essential tremor (8) Encounter for removal of sutures (9) Epistaxis (10) Atrial fibrillation, controlled (11) H/O parotidectomy (12) H/O inguinal hernia repair . "Provider Documentation" section prepared by Austen Jason. . VTE Core Measure Inpt VTE Proph given/why not?: Unfractionated heparin SQ
--- NOTE | 2016-06-29 13:40 | Discharge Summary ---
Discharge Summary Date of Service June 29, 2016. Discharge Summary Admission Date: Jun 26, 2016 at 04:20 Discharge Date: June 29, 2016 Discharge Disposition: Home with services Principal Diagnosis: Acute hypoxic respiratory failure, likely from Aspiration Pneumonitis Acute Exacerbation of Underlying COPD Secondary Diagnoses/Problems: Please refer to hospital course below. Procedures: ABDOMINAL ULTRASOUND, RIGHT UPPER QUADRANT HISTORY: Elevated bilirubin. COMPARISON: CT of the abdomen and pelvis March 27, 2012 and right upper quadrant ultrasound April 03, 2012 FINDINGS: Hepatic echogenicity is mildly increased. No hepatic lesions are identified. There is no biliary ductal dilatation. The pancreas is obscured by overlying bowel gas. There are numerous gallstones within the gallbladder. There is no gallbladder wall thickening. There is no pericholecystic fluid. There is no right hydronephrosis. IMPRESSION: 1. Cholelithiasis. No gallbladder wall thickening. 2. No biliary ductal dilatation. 3. Obscured pancreas due to overlying bowel gas. 4. Suspected fatty liver. CHEST ONE VIEW PORTABLE HISTORY: Aspiration pneumonia. Follow-up. COMPARISON: Chest 06/26/2016. FINDINGS: The heart remains enlarged. Mild diffuse interstitial thickening persists. No pneumothorax. Patchy densities at the right lung base. No evidence for pulmonary edema. Trace right pleural effusion. IMPRESSION: 1. Patchy densities at the right lung base. This may represent a pneumonia secondary to aspiration. 2. Cardiomegaly and diffuse interstitial thickening persists. Pending Studies/Follow-Up: Please refer to hospital course below. Medication Reconciliation New Medications: Amoxicillin & Pot Clavulanate (Amoxicillin/Clavulanate P) 1 Tab Tab 875 MG PO BIDM for 3 Days, #6 TAB 0 Refills Budesonide/Formoterol Fumarate (Symbicort 160-4.5 Mcg/Act) 60 Puffs/Inhaler Aero 1 PUFFS INH BID for 7 Days, #1 INHA 1 Refill Ipratropium-Albuterol (Combivent Respimat) 1 Aer Aer 1 PUFF INH QID for 7 Days, #1 INHA 2 Refills may also use q4h prn for shortness of breath/wheezing Changed Medications: Gabapentin (Gabapentin) 600 Mg Tab 600 MG PO BID for 30 Days (Changed from: 900 MG; Removed Instructions) Continued Medications: Allopurinol (Allopurinol) 300 Mg Tab 300 MG PO QAM Calcium Polycarbophil (Fibercon) 625 Mg Tab 2 CAP PO BID, CPLT Hydrochlorothiazide (Hctz) 12.5 Mg Cap 12.5 MG PO QAM Lisinopril (Zestril) 5 Mg Tab 5 MG PO DAILY, TAB Metoprolol Tartrate (Lopressor) (Lopressor) 50 Mg Tab 50 MG PO BID Primidone (Primidone) 50 Mg Tab 2 TABS PO BID Admission Information HPI (per Admitting provider): Patient is a 89 Yr old male with PMH of DM type 2 diet controlled, HTN, CKD stage III, essential tremor, BPH, Afib not on anticoagulation and other comorbidities presents with sudden onset of SOB, coughing after a choking episode while drinking alcohol yesterday evening. Patient states he is doing well until the choking episode occurred. States having worsening cough with clear expectoration, denies hemoptysis. Also had SOB and is found to be hypoxic at 87% on RA which improved with oxygen while in ED. He states having a a brief episode of chest pain secondary to chocking which resolved. He is not on oxygen at home. Denies any history of fever, chills, nausea, vomiting, abd pain, diarrhea, urinary symptoms, palpitations, dizziness. He also started to notice increased B/L LE swelling since few days but denies SOB prior to today. Physical Exam (per Admitting): General Appearance: WD/WN, no apparent distress Head: normocephalic, atraumatic Eyes: normal inspection, PERRL, EOMI, sclerae normal ENT: normal ENT inspection, hearing grossly normal Neck: supple, trachea midline Respiratory/Chest: chest non-tender, normal breath sounds, no respiratory distress, no accessory muscle use, + rhonchi (B/L predominantly on left lower base) Cardiovascular: no murmur, + tachycardia, + irregularly irregular, + pertinent finding (B/L LE edema 2 +) Abdomen/GI: normal bowel sounds, non tender, soft Back: normal inspection Extremities/Musculoskelatal: normal inspection, no calf tenderness, + pertinent finding (B/L LE edema ) Neurologic/Psych: warp placer II-XII nml as tested, no motor/sensory deficits, alert , oriented x 3 Skin: normal color, warm/dry Lymphatic: no adenopathy Hospital Course 89 year old male with history of DM 2, HTN, CKD 3, BPH, A Fib presenting with cough, shortness of breath. Acute hypoxic respiratory failure, likely from Aspiration Pneumonitis Acute Exacerbation of Underlying COPD -- repeat CXR: (+) right lower lobe infiltrate -- blood and sputum cultures negative so far -- given Augmentin PO, Combivent, Prednisone -- was on 2 liters via nasal cannula, weaned off, now saturating > 90% on room air improved overall -- Speech Therapy eval: no signs of aspiration discharge plan: -- Augmentin x 3 more days to complete 7 days total continue Symbicort continue PRN Combivent -- ff up with PCP in 1 week home health services to be arranged PT/OT eval: ambulate with walker Lower Leg Edema - CHF ruled out - Echo: * The left ventricle is normal in size. * Left ventricular systolic function is normal. * Ejection Fraction = 55-60%. * The right ventricular systolic function is normal. * There is mild mitral regurgitation. * There is mild tricuspid regurgitation. - Lasix IV ordered with good diuresis - has mild lower leg edema continue HCTZ advised to elevated leg, 2g Na diet Elevated Total Bilirubin, Resolved - Bilirubin elevated on admission, but gradually resolved - Liver US: 1. Cholelithiasis. No gallbladder wall thickening. 2. No biliary ductal dilatation. 3. Obscured pancreas due to overlying bowel gas. 4. Suspected fatty liver. - monitor as outpatient Alcoholism - already on Gabapentin - PO Ativan PRN as per alcohol withdrawal protocol - no signs of withdrawal during admission Anemia , Mild - Hg ~ 11 no signs of active bleeding - monitor Hg Atrial Fibrillation rate controlled Not a good candidate for manager intermediate oral anti-coagulation due to falls and alcohol use Continue Metoprolol CKD III: crea stable Hypertension: resume usual BP medications Diabetes Type II: Diet controlled ISS, Accu checks Essential Tremors: continue primidone Neuropathy: Likely Diabetic neuropathy Continue gabapentin Dispo d/c home with home health services ff up with PCP in 1 week Total time spent on discharge = 35 minutes This includes examination of the patient, discharge planning, medication reconciliation, and communication with other providers. Discharge Instructions Discharge Instructions Date of Service June 29, 2016. Admission Reason for Admission: Aspiration Pneumonia Discharge Discharge Diagnosis / Problem: ASPIRATION PNEUMONIA Discharge Goals Goal(s): Diagnostic testing, Therapeutic intervention Activity Recommendations Activity Limitations: as noted below (NO HEAVY EXERTION UNTIL RE-EVALUATED BY PRIMARY CARE PHYSICIAN.) . Instructions / Follow-Up Instructions / Follow-Up PLEASE REVIEW YOUR NEW MEDICATION LIST AND FOLLOW INSTRUCTIONS CAREFULLY. GABAPENTIN DOSE HAS BEEN DECREASED AND ADJUSTED ACCORDING TO YOUR KIDNEY FUNCTION. CALL PRIMARY CARE PHYSICIAN OR RETURN TO ER IMMEDIATELY IF WITH RECURRENCE OF SYMPTOMS, INCREASING COUGH, SPUTUM, SHORTNESS OF BREATH, FEVER/CHILLS, WEAKNESS, LEG SWELLING. ALWAYS USE A WALKER WHEN AMBULATING. FOLLOW UP WITH DR. NIEVES ON WEDNESDAY JULY 06, 2016 AT 12:45PM. Current Hospital Diet Patient's current hospital diet: Diabetes Type 2 Diet Discharge Diet Recommended Diet: AHA Diet (Heart Healthy), Diabetes Type 2 Diet Pending Studies Studies pending at discharge: no Laboratory Results Hemoglobin A1c Test 04/07/16 04:43 Range/Units Estimated Average Glucose 128 mg/dl Hemoglobin A1c 6.1 H 4.5-5.6 % Medical Emergencies . Who to Call and When: Medical Emergencies: If at any time you feel your situation is an emergency, please call 911 immediately. . Non-Emergent Contact Non-Emergency issues call your: Primary Care Provider Call Non-Emergent contact if: you have a fever, you have any medication questions . Past History Medical & Surgical History: (1) Aspiration pneumonia (2) DM2 (diabetes mellitus, type 2) (3) CKD (chronic kidney disease), stage III (4) HTN (hypertension) (5) BPH (benign prostatic hypertrophy) (6) Diabetic neuropathy (7) Essential tremor (8) Encounter for removal of sutures (9) Epistaxis (10) Atrial fibrillation, controlled (11) H/O parotidectomy (12) H/O inguinal hernia repair . "Provider Documentation" section prepared by Austen Jason. . VTE Core Measure Inpt VTE Proph given/why not?: Unfractionated heparin SQ
== END 2016-06-29 14:37 | disposition home health service (06) | DRG 177 ==
LOC: ENRESERVTM → ENRESERVDT → C.EDB 00:45 → C.2T 04:20
PROVIDERS: ADMIT Internal Medicine; ATTEND Internal Medicine
DX: J69.0 Pneumonitis due to inhalation of food and vomit (principal); J96.01 Acute respiratory failure with hypoxia; J44.0 Chronic obstructive pulmonary disease with (acute) lower respiratory infection; J44.1 Chronic obstructive pulmonary disease with (acute) exacerbation; I12.9 Hypertensive chronic kidney disease with stage 1 through stage 4 chronic kidney disease, or unspecified chronic kidney disease; I48.91 Unspecified atrial fibrillation; G25.0 Essential tremor; K80.20 Calculus of gallbladder without cholecystitis without obstruction; K76.0 Fatty (change of) liver, not elsewhere classified; E11.22 Type 2 diabetes mellitus with diabetic chronic kidney disease; N18.3 Chronic kidney disease, stage 3 (moderate); N40.0 Benign prostatic hyperplasia without lower urinary tract symptoms; I34.0 Nonrheumatic mitral (valve) insufficiency; I36.1 Nonrheumatic tricuspid (valve) insufficiency; F10.20 Alcohol dependence, uncomplicated; D64.9 Anemia, unspecified; E11.40 Type 2 diabetes mellitus with diabetic neuropathy, unspecified; K59.00 Constipation, unspecified; Z83.3 Family history of diabetes mellitus; Z82.3 Family history of stroke; Z82.49 Family history of ischemic heart disease and other diseases of the circulatory system; Z87.891 Personal history of nicotine dependence